=== PATIENT | female | born 1980 | race Hispanic/Latino ===

== ENCOUNTER 2019-08-15 07:43 | Emergency (ER) | payer SELFPAY ==
[2019-08-15] MEDS ORDERED: predniSONE 20 MG TAB ONE (08:03)
[2019-08-15] MEDS ORDERED: LEVALBUTEROL 1.25 MG/3 ML NEB ONE (08:03)
--- NOTE | 2019-08-15 08:47 | ER ---
Nurse's Notes [facility] Name: Lexis Sterling Age: 39 yrs Sex: Female : 1980 Arrival Date: 08/15/2019 Time: 07:46 Bed 20 Private MD: Diagnosis: Cough;Wheezing Presentation: 08/15 07:47 Presenting complaint: Patient states: Cough, congestion, sore throat x 1 week. jl7 Transition of care: patient was not received from another setting of care. Onset of symptoms was August 09, 2019. Risk Assessment: Do you want to hurt yourself or someone else? Patient reports no desire to harm self or others. Initial Sepsis Screen: Does the patient meet any 2 criteria? No. Patient's initial sepsis screen is negative. Does the patient have a suspected source of infection? No. Patient's initial sepsis screen is negative. Care prior to arrival: None. 07:47 Method Of Arrival: Ambulatory [facility] 07:47 Acuity: JD 4 jl7 Triage Assessment: 07:47 General: Appears in no apparent distress. uncomfortable, Behavior is calm, cooperative, jl7 appropriate for age. Pain: Complains of pain in chest \\T\\ Sore throat Pain does not radiate. Pain currently is 8 out of 10 on a pain scale. Quality of pain is described as "It's on fire.". EENT: Oral mucosa is moist. Throat is clear. Neuro: Level of Consciousness is awake, alert, obeys commands, Oriented to person, place, time, situation. Cardiovascular: Heart tones S1 S2 present Patient's skin is warm and dry. Respiratory: Airway is patent Respiratory effort is even, unlabored, Respiratory pattern is regular, symmetrical, Breath sounds are clear bilaterally. GI: No signs and/or symptoms were reported involving the gastrointestinal system. : No signs and/or symptoms were reported regarding the genitourinary system. Derm: Skin is pink, warm \\T\\ dry. Musculoskeletal: No signs and/or symptoms reported regarding the musculoskeletal system. 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 - Social history:: Smoking status: Patient/guardian denies using tobacco. - Family history:: not pertinent. - Ebola Screening: : No symptoms or risks identified at this time. - Hospitalizations: : No recent hospitalization is reported. Screenin:50 Abuse screen: Denies threats or abuse. Denies injuries from another. Nutritional jl7 screening: No deficits noted. Tuberculosis screening: No symptoms or risk factors identified. Fall Risk None identified. Assessment: 07:47 General: See triage assessment. jl7 08:45 Reassessment: Patient appears in no apparent distress at this time. Patient and/or jl7 family updated on plan of care and expected duration. Pain level reassessed. Patient is alert, oriented x 3, equal unlabored respirations, skin warm/dry/pink. Patient states feeling better. Patient states symptoms have improved. Vital Signs: 07:47 BP 149 / 99; Pulse 107; Resp 17 S; Temp 98.4(O); Pulse Ox 100% on R/A; Weight 47.63 kg jl7 (R); Height 4 ft. 9 in. (144.78 cm) (R); Pain 8/10; 08:45 BP 132 / 79; Pulse 95; Resp 16 S; Pulse Ox 100% on R/A; jl7 07:47 Body Mass Index 22.72 (47.63 kg, 144.78 cm) jl7 ED Course: 07:46 Patient arrived in ED. as 07:47 Carlos Carvalho RN is Primary Nurse. jl7 07:47 Leo Moreno MD is Attending Physician. rn 07:47 Arm band placed on right wrist. jl7 07:47 Patient has correct armband on for positive identification. Bed in low position. Call [facility] light in reach. Side rails up X 1. Pulse ox on. NIBP on. 08:00 Flu and/or RSV swab sent to lab. Strep swab sent to lab. jl7 08:11 Triage completed. jl7 08:28 X-ray completed. Patient tolerated procedure well. Patient moved back from radiology. jb2 08:29 XRAY Chest Pa And Lat (2 Views) In Process Unspecified. EDMS 09:00 No provider procedures requiring assistance completed. Patient did not have IV access jl7 during this emergency room visit. Administered Medications: 08:08 Drug: Xopenex 1.25 mg Route: Inhalation; jl7 08:30 Follow up: Response: No adverse reaction 7 08:09 Drug: predniSONE 60 mg Route: PO; 7 08:50 Follow up: Response: No adverse reaction jl7 Outcome: 08:46 Discharge ordered by . rn 09:00 Discharged to home ambulatory. jl7 09:00 Condition: stable 09:00 Discharge instructions given to patient, Instructed on discharge instructions, follow up and referral plans. medication usage, Demonstrated understanding of instructions, follow-up care, medications, Prescriptions given X 3. 09:00 Patient left the ED. jl7 Signatures: Dispatcher [employer] EDMS Miguel Angel Singletary Amelia as Nieto, Roman, MD MD rn Leal, Jahala, RN RN jl7
--- NOTE | 2019-08-15 08:47 | EDPHYS ---
Physician Documentation [facility] Name: Lexis Sterling Age: 39 yrs Sex: Female : 1980 Arrival Date: 08/15/2019 Time: 07:46 Bed 20 Private MD: ED Physician Leo Moreno HPI: 08/15 07:55 This 39 yrs old Female presents to ER via Unassigned with complaints of Flu rn Symptoms. 07:55 The patient or guardian reports cough, flu symptoms, myalgias. Onset: The rn symptoms/episode began/occurred 2 day(s) ago. Severity of symptoms: At their worst the symptoms were mild, in the emergency department the symptoms are unchanged. Modifying factors: The symptoms are alleviated by nothing, the symptoms are aggravated by nothing. Associated signs and symptoms: Pertinent positives: diarrhea, fever, nausea, rhinorrhea, sore throat, vomiting. The patient has not experienced similar symptoms in the past. Reports 2 days of fever, cough, sore throat, congestion, runny nose, diarrhea and vomiting. 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 Son also now has similar symptoms. 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 - Social history:: Smoking status: Patient/guardian denies using tobacco. - Family history:: not pertinent. - Ebola Screening: : No symptoms or risks identified at this time. - Hospitalizations: : No recent hospitalization is reported. ROS: 07:55 Constitutional: + fever Eyes: Negative for injury, pain, redness, and discharge, ENT: + rn congestion and sore throat Neck: Negative for injury, pain, and swelling, Cardiovascular: Negative for chest pain, palpitations, and edema, Respiratory: +cough and wheezing Abdomen/GI: + vomiting and diarrhea : Negative for injury, bleeding, discharge, and swelling, MS/Extremity: Negative for injury and deformity, Skin: Negative for injury, rash, and discoloration, Neuro: Negative for headache, numbness, tingling, and seizure. Exam: 07:55 Constitutional: This is a well developed, well nourished patient who is awake, alert, rn and in no acute distress. Ambulatory to room without difficulty or assistance Head/Face: Normocephalic, atraumatic. Eyes: Pupils equal round and reactive to light, extra-ocular motions intact. Lids and lashes normal. Conjunctiva and sclera are non-icteric and not injected. Cornea within normal limits. Periorbital areas with no swelling, redness, or edema. ENT: MMM, no stridor, mild pharyngeal erythema, no swelling. Neck: Trachea midline, no thyromegaly or masses palpated, and no cervical lymphadenopathy. Supple, full range of motion without nuchal rigidity, or vertebral point tenderness. No Meningismus. Cardiovascular: Regular rate and rhythm. No pulse deficits. Respiratory: No retractions or labored breathing. Faint audible wheezing. Speaking full sentences. Abdomen/GI: soft, non-tender, no peritoneal signs. MS/ Extremity: Pulses equal, no cyanosis. Neurovascular intact. Full, normal range of motion. Equal circumference. Neuro: Awake and alert, GCS 15, oriented to person, place, time, and situation. Cranial nerves II-XII grossly intact. Motor strength 5/5 in all extremities. Sensory grossly intact. Cerebellar exam normal. Normal gait. Vital Signs: 07:47 BP 149 / 99; Pulse 107; Resp 17 S; Temp 98.4(O); Pulse Ox 100% on R/A; Weight 47.63 kg jl7 (R); Height 4 ft. 9 in. (144.78 cm) (R); Pain 8/10; 08:45 BP 132 / 79; Pulse 95; Resp 16 S; Pulse Ox 100% on R/A; jl7 07:47 Body Mass Index 22.72 (47.63 kg, 144.78 cm) jl7 MDM: 07:47 Patient medically screened. rn 08:45 Differential Diagnosis: Bronchitis Influenza Upper Respiratory Infection Asthma rn Exacerbation Viral Syndrome Pneumonia. Data reviewed: vital signs, nurses notes, lab test result(s), radiologic studies, plain films, and as a result, I will discharge patient. Test interpretation: by ED physician or midlevel provider: plain radiologic studies, CXR neg for pneumonia. Counseling: I had a detailed discussion with the patient and/or guardian regarding: the historical points, exam findings, and any diagnostic results supporting the discharge/admit diagnosis, lab results, radiology results, the need for outpatient follow up, to return to the emergency department if symptoms worsen or persist or if there are any questions or concerns that arise at home. Special discussion: I discussed with the patient/guardian in detail that at this point there is no indication for admission to the hospital. It is understood, however, that if the symptoms persist or worsen the patient needs to return immediately for re-evaluation. ED course: Will treat for flu given + exposure and symptoms consistent with flu, along with steroids and cough medication for asthma exacerbation.. 08/15 07:54 Order name: Flu; Complete Time: 08:43 rn 08/15 07:54 Order name: Strep; Complete Time: 08:43 rn 08/15 07:54 Order name: XRAY Chest Pa And Lat (2 Views) rn 08/15 08:24 Order name: Throat Culture EDMS Administered Medications: 08:08 Drug: Xopenex 1.25 mg Route: Inhalation; [facility] 08:30 Follow up: Response: No adverse reaction [facility] 08:09 Drug: predniSONE 60 mg Route: PO; 7 08:50 Follow up: Response: No adverse reaction [facility] Disposition: 08/15/19 08:46 Discharged to Home. Impression: Cough, Wheezing. - Condition is Stable. - Discharge Instructions: Upper Respiratory Infection, Adult, Cough, Adult. - Prescriptions for Albuterol Sulfate 90 mcg/actuation - inhale 1-2 puff by INHALATION route every 4-6 hours; 1 Inhaler. Tamiflu 75 mg Oral Capsule - take 1 tablet by ORAL route every 12 hours for 5 days; 10 tablet. Guaifenesin AC 10- 100 mg/5 mL Oral Liquid - take 10 milliliter by ORAL route every 4 hours As needed; 240 milliliter. Prednisone 20 mg Oral Tablet - take 3 tablet by ORAL route once daily for 5 days; 15 tablet. - Medication Reconciliation Form, Thank You Letter, Antibiotic Education, Prescription Opioid Use, Work release form form. - Follow up: Private Physician; When: As needed; Reason: Recheck today's complaints, Re-evaluation by your physician. - Problem is new. - Symptoms have improved. Signatures: Dispatcher [employer] EDMS Moreno, Leo, Carlos Glass MD, rn, RN RN jl7 Corrections: (The following items were deleted from the chart) 09:00 08:46 08/15/2019 08:46 Discharged to Home. Impression: Cough; Wheezing. Condition is jl7 Stable. Forms are Work release form, Medication Reconciliation Form, Thank You Letter, Antibiotic Education, Prescription Opioid Use. Follow up: Private Physician; When: As needed; Reason: Recheck today's complaints, Re-evaluation by your physician. Problem is new. Symptoms have improved. rn
--- NOTE | 2019-08-15 09:04 | RAD REPORT ---
EXAM DESCRIPTION: RAD - Chest Pa And Lat (2 Views) - 08/15/2019 8:29 am CLINICAL HISTORY: COUGH, congestion COMPARISON: None. TECHNIQUE: PA and lateral views of the chest were obtained. FINDINGS: The lungs are clear. Breast implants overlie the lower chest. Heart size is normal and ce ntral vasculature is within normal limits. No pleural effusion or pneumothorax seen. No acute bony finding noted. No aortic abnormality. IMPRESSION: No acute cardiopulmonary process. No suspicious change from comparison.
[2019-08-15 09:29] VITALS: TEMP 98.4; O2SAT 100
[2019-08-15 09:30] VITALS: BP 132/79
== END 2019-08-15 09:00 | disposition home or self-care (01) ==
LOC: ER 07:43
DX: R06.2 Wheezing (principal); Z85.41 Personal history of malignant neoplasm of cervix uteri
CPT/HCPCS: 71046; 87070; 87081; 87804; 99284; J7512

== ENCOUNTER 2021-01-07 08:14 | Emergency (ER) | payer SELFPAY ==
[2021-01-07] MEDS ORDERED: DIPHENHYDRAMINE 25 MG TAB/CAP ONE (08:53)
[2021-01-07] MEDS ORDERED: METHYLPREDNISOLONE 125 MG INJ ONE (08:53)
--- NOTE | 2021-01-07 10:52 | EDPHYS ---
Physician Documentation [facility] Name: Lexis Sterling Age: 40 yrs Sex: Female : 1980 Arrival Date: 01/07/2021 Time: 08:16 Bed 8 Private MD: ED Physician Nick Mosley HPI: 01/07 08:31 This 40 yrs old Female presents to ER via Ambulatory with complaints of kdr Itching All over. 08:31 The patient thinks she may have been exposed to parasites and feels like she is itching kdr all over and is having worms in her stool.. Onset: The symptoms/episode began/occurred gradually, 1 week(s) ago. Severity of symptoms: At their worst the symptoms were mild in the emergency department the symptoms are unchanged. The patient has not experienced similar symptoms in the past. The patient has not recently seen a physician. Historical: - Allergies: 08:27 No Known Allergies; sv - PMHx: 08:27 cervical CA; Migraines; sv - PSHx: 08:27 None; sv - Immunization history:: Adult Immunizations up to date. - Social history:: Smoking status: . ROS: 08:31 Constitutional: Negative for fever, chills, and weight loss, Eyes: Negative for injury, kdr pain, redness, and discharge, Neck: Negative for injury, pain, and swelling, Cardiovascular: Negative for chest pain, palpitations, and edema, Respiratory: Negative for shortness of breath, cough, wheezing, and pleuritic chest pain, Abdomen/GI: Negative for abdominal pain, nausea, vomiting, diarrhea, and constipation, Back: Negative for injury and pain, : Negative for injury, bleeding, discharge, and swelling, MS/Extremity: Negative for injury and deformity, Skin: Negative for injury, rash, and discoloration, Neuro: Negative for headache, weakness, numbness, tingling, and seizure activity. Psych: Negative for depression, anxiety, suicide ideation, homicidal ideation, and hallucinations, Allergy/Immunology: Negative for hives, rash, and allergies, Endocrine: Negative for neck swelling, polydipsia, polyuria, polyphagia, and marked weight changes, Hematologic/Lymphatic: Negative for swollen nodes, abnormal bleeding, and unusual bruising. 08:31 Skin: Positive for erythema, diffusely, itching, Negative for abscesses, avulsion, cellulitis, diaphoresis, discoloration, ecchymosis, hematoma, jaundice, laceration(s), lesions, pallor, puncture, rash, swelling, ulceration. Exam: 08:31 Constitutional: This is a well developed, well nourished patient who is awake, alert, kdr and in no acute distress. Head/Face: Normocephalic, atraumatic. Eyes: Pupils equal round and reactive to light, extra-ocular motions intact. Lids and lashes normal. Conjunctiva and sclera are non-icteric and not injected. Cornea within normal limits. Periorbital areas with no swelling, redness, or edema. Neck: Trachea midline, no thyromegaly or masses palpated, and no cervical lymphadenopathy. Supple, full range of motion without nuchal rigidity, or vertebral point tenderness. No Meningismus. Chest/axilla: Normal chest wall appearance and motion. Nontender with no deformity. No lesions are appreciated. Cardiovascular: Regular rate and rhythm with a normal S1 and S2. No gallops, murmurs, or rubs. Normal PMI, no JVD. No pulse deficits. Respiratory: Lungs have equal breath sounds bilaterally, clear to auscultation and percussion. No rales, rhonchi or wheezes noted. No increased work of breathing, no retractions or nasal flaring. Abdomen/GI: Soft, non-tender, with normal bowel sounds. No distension or tympany. No guarding or rebound. No evidence of tenderness throughout. Back: No spinal tenderness. No costovertebral tenderness. Full range of motion. Skin: Warm, dry with normal turgor. Normal color with no rashes, no lesions, and no evidence of cellulitis. MS/ Extremity: Pulses equal, no cyanosis. Neurovascular intact. Full, normal range of motion. Neuro: Awake and alert, GCS 15, oriented to person, place, time, and situation. Cranial nerves II-XII grossly intact. Motor strength 5/5 in all extremities. Sensory grossly intact. Cerebellar exam normal. Normal gait. Psych: Awake, alert, with orientation to person, place and time. Behavior, mood, and affect are within normal limits. Vital Signs: 08:26 BP 133 / 86; Pulse 96; Resp 20; Temp 97.4; Pulse Ox 100% ; sv 09:20 BP 118 / 83; Pulse 76; Resp 16; Pulse Ox 99% ; sv 10:11 BP 126 / 95; Pulse 78; Resp 16; Pulse Ox 97% ; sv MDM: 08:31 Data reviewed: vital signs, nurses notes. Counseling: I had a detailed discussion with kdr the patient and/or guardian regarding: the historical points, exam findings, and any diagnostic results supporting the discharge/admit diagnosis, the need for outpatient follow up, Call lab for results of stool tests in a few days. 10:52 Patient medically screened. kdr 01/07 08:30 Order name: Stool Culture kdr 01/07 08:30 Order name: Ova And Parasites kdr 01/07 08:30 Order name: Occult Blood kdr 01/07 08:30 Order name: Fecal Leukocyte Stain kdr Administered Medications: 08:40 Drug: SOLU-Medrol (methylPREDNISolone sodium succinate) 125 mg Route: IM; Site: right sv gluteus; 09:00 Follow up: Response: No adverse reaction sv 08:41 Drug: Benadryl (diphenhydrAMINE) 25 mg Route: PO; sv 09:00 Follow up: Response: No adverse reaction sv Disposition: 01/07/21 10:52 Discharged to Home. Impression: Allergic contact dermatitis. - Condition is Stable. - Discharge Instructions: Allergies, Adult. - Prescriptions for Benadryl 25 mg Oral Capsule - take 1 capsule by ORAL route every 6 hours As needed; 30 tablet. Medrol (Alexsander) 4 mg Oral Tablets, Dose Pack - take 1 tablet by ORAL route as directed - follow package instructions; 1 packet. - Medication Reconciliation Form, Thank You Letter form. - Follow up: Private Physician; When: 2 - 3 days; Reason: If symptoms return, Further diagnostic work-up, Recheck today's complaints, Continuance of care, Re-evaluation by your physician. - Problem is new. - Symptoms have improved. - Notes: Call the lab to get all of the final stool lab results Signatures: Dispatcher [employer] Megan Warner RN RN Nick Mosley MD MD kdr Corrections: (The following items were deleted from the chart) 11:03 10:52 01/07/2021 10:52 Discharged to Home. Impression: Allergic contact dermatitis. sv Condition is Stable. Forms are Medication Reconciliation Form, Thank You Letter, Antibiotic Education, Prescription Opioid Use. Follow up: Private Physician; When: 2 - 3 days; Reason: If symptoms return, Further diagnostic work-up, Recheck today's complaints, Continuance of care, Re-evaluation by your physician. Problem is new. Symptoms have improved. kdr
--- NOTE | 2021-01-07 10:52 | ER ---
Nurse's Notes [facility] Name: Lexis Sterling Age: 40 yrs Sex: Female : 1980 Arrival Date: 01/07/2021 Time: 08:16 Bed 8 Private MD: Diagnosis: Allergic contact dermatitis Presentation: 01/07 08:26 Chief complaint: Patient states: "I think I have a parasite in me or something. I went sv to the and they gave me some steroid cream but it isn't working.". Coronavirus screen: At this time, unable to obtain information related to travel outside the [place] Ebola Screen: No symptoms or risks identified at this time. Initial Sepsis Screen: Does the patient meet any 2 criteria? HR > 90 bpm. No. Patient's initial sepsis screen is negative. Does the patient have a suspected source of infection? No. Patient's initial sepsis screen is negative. Risk Assessment: Do you want to hurt yourself or someone else? Patient reports no desire to harm self or others. Onset of symptoms is unknown. 08:26 Method Of Arrival: Ambulatory sv 08:26 Acuity: JD 5 sv Triage Assessment: 08:28 General: Appears in no apparent distress. uncomfortable, well developed, Behavior is sv cooperative, rambling. Pain: Denies pain. Neuro: Level of Consciousness is awake, alert, obeys commands, Oriented to person, place, time, situation, Moves all extremities. Full function Gait is steady. Respiratory: Respiratory effort is even, unlabored, Respiratory pattern is regular, symmetrical. Derm: Skin is pink, warm \\T\\ dry. Historical: - Allergies: 08:27 No Known Allergies; sv - PMHx: 08:27 cervical CA; Migraines; sv - PSHx: 08:27 None; sv - Immunization history:: Adult Immunizations up to date. - Social history:: Smoking status: . Screenin: Abuse screen: Denies threats or abuse. Denies injuries from another. Nutritional sv screening: No deficits noted. Tuberculosis screening: No symptoms or risk factors identified. Fall Risk None identified. Assessment: 08:41 Reassessment: Patient appears in no apparent distress at this time. No changes from sv previously documented assessment. Patient and/or family updated on plan of care and expected duration. Pain level reassessed. Patient is alert, oriented x 3, equal unlabored respirations, skin warm/dry/pink. 09:30 Reassessment: Patient appears in no apparent distress at this time. Patient and/or hb family updated on plan of care and expected duration. Pain level reassessed. Patient is alert, oriented x 3, equal unlabored respirations, skin warm/dry/pink. 11:02 Reassessment: Patient appears in no apparent distress at this time. No changes from sv previously documented assessment. Patient and/or family updated on plan of care and expected duration. Pain level reassessed. Patient is alert, oriented x 3, equal unlabored respirations, skin warm/dry/pink. Vital Signs: 08:26 BP 133 / 86; Pulse 96; Resp 20; Temp 97.4; Pulse Ox 100% ; sv 09:20 BP 118 / 83; Pulse 76; Resp 16; Pulse Ox 99% ; sv 10:11 BP 126 / 95; Pulse 78; Resp 16; Pulse Ox 97% ; sv ED Course: 08:16 Patient arrived in ED. ds1 08:17 Megan Zhou RN is Primary Nurse. sv 08:19 Nick Mosley MD is Attending Physician. kdr 08:27 Triage completed. sv 08:28 Arm band placed on. sv 08:29 Patient has correct armband on for positive identification. Bed in low position. Call sv light in reach. Pulse ox on. NIBP on. Door closed. Head of bed elevated. 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 sv 11:02 Patient did not have IV access during this emergency room visit. sv Administered Medications: 08:40 Drug: SOLU-Medrol (methylPREDNISolone sodium succinate) 125 mg Route: IM; Site: right sv gluteus; 09:00 Follow up: Response: No adverse reaction sv 08:41 Drug: Benadryl (diphenhydrAMINE) 25 mg Route: PO; sv 09:00 Follow up: Response: No adverse reaction sv Outcome: 10:52 Discharge ordered by . kdr 11:02 Discharged to home ambulatory. sv 11:02 Condition: stable 11:02 Discharge instructions given to patient, Instructed on discharge instructions, follow up and referral plans. medication usage, Demonstrated understanding of instructions, follow-up care, medications, Prescriptions given X 2. 11:03 Patient left the ED. sv Signatures: Megan Zhou RN RN sv Nick Mosley MD MD [facility] Shefali Muse ds1 Reina Ruiz RN RN hb
[2021-01-07 11:19] VITALS: TEMP 97.4
[2021-01-07 11:22] VITALS: BP 126/95; O2SAT 97
== END 2021-01-07 11:03 | disposition home or self-care (01) ==
LOC: ER 08:14
DX: L23.9 Allergic contact dermatitis, unspecified cause (principal); Z85.41 Personal history of malignant neoplasm of cervix uteri
CPT/HCPCS: 96372; 99284; J2930

== ENCOUNTER 2023-07-30 03:58 | Emergency (ER) | payer SELFPAY ==
--- NOTE | 2023-07-30 04:25 | ER ---
Nurse's Notes [facility] Name: Lexis Sterling Age: 43 yrs Sex: Female : 1980 Arrival Date: 07/30/2023 Time: 03:58 Bed 17 Private MD: Diagnosis: Rash and other nonspecific skin eruption Presentation: 07/30 04:07 Chief complaint: Patient states: PT IS ALLERGIC TO LATEX AND DOXYCYLINE. UNKNOWN WHAT rv TRIGGERED THE REACTION, BUT RASH STARTED ON THE FACE, TO THE NECK AND QUINCY ARMS. DENIES SOB. Coronavirus screen: At this time, the client does not indicate any symptoms associated with coronavirus-19. Ebola Screen: No symptoms or risks identified at this time. Initial Sepsis Screen: Does the patient meet any 2 criteria? No. Patient's initial sepsis screen is negative. Does the patient have a suspected source of infection? No. Patient's initial sepsis screen is negative. Risk Assessment: Do you want to hurt yourself or someone else? Patient reports no desire to harm self or others. Onset of symptoms was July 30, 2023. 04:07 Method Of Arrival: Ambulatory rv 04:07 Acuity: JD 4 rv Triage Assessment: 04:09 General: Appears comfortable, Behavior is calm, cooperative. Pain: Denies pain. Neuro: rv Level of Consciousness is awake, alert, obeys commands, Oriented to person, place, time, situation. Cardiovascular: Capillary refill < 3 seconds Patient's skin is warm and dry. Respiratory: Airway is patent Respiratory effort is even, unlabored, Breath sounds are clear bilaterally. GI: No signs and/or symptoms were reported involving the gastrointestinal system. : No signs and/or symptoms were reported regarding the genitourinary system. Derm: Rash noted that is red, raised, on back of neck, face, right arm and left arm Reports burning. Historical: - Allergies: 04:09 Doxycycline; rv 04:09 Latex, Natural Rubber; rv - PMHx: 04:09 cervical CA; Migraines; rv - PSHx: 04:09 Appendectomy; TUBAL LIGATION; rv - Immunization history:: Adult Immunizations up to date. - Social history:: Smoking status: Patient denies any tobacco usage or history of. Screenin:11 [facility] ED Fall Risk Assessment (Adult) History of falling in the last 3 months, rv including since admission No falls in past 3 months (0 pts) Score/Fall Risk Level 0 - 2 = Low Risk Oriented to surroundings, Maintained a safe environment, Educated pt \T\ family on fall prevention, incl call for assistance when getting out of bed, Assessed \T\ reinforced patient's understanding of fall precautions. Abuse screen: Denies threats or abuse. Denies injuries from another. Nutritional screening: No deficits noted. Tuberculosis screening: No symptoms or risk factors identified. Assessment: 04:11 Reassessment: SEE TRIAGE NOTES. rv 04:14 General: Appears in no apparent distress. comfortable, Behavior is calm, cooperative, km8 appropriate for age. Pain: Denies pain. Neuro: Level of Consciousness is awake, alert, obeys commands, Oriented to person, place, time, situation. Cardiovascular: Denies chest pain, shortness of breath, Capillary refill < 3 seconds Patient's skin is warm and dry. Respiratory: Airway is patent Respiratory effort is even, unlabored, Respiratory pattern is regular, symmetrical. GI: No signs and/or symptoms were reported involving the gastrointestinal system. : No signs and/or symptoms were reported regarding the genitourinary system. EENT: No deficits noted. Derm: Skin is intact, is healthy with good turgor, Skin is dry, Skin is pink, warm \T\ dry. normal, Skin temperature is warm Rash noted that is red, raised, urticaria, on left arm and right arm and face and back of neck. Musculoskeletal: No signs and/or symptoms reported regarding the musculoskeletal system. Vital Signs: 04:07 BP 130 / 76; Pulse 120; Resp 18; Temp 100; Weight 41.73 kg; Height 4 ft. 9 in. ; rv 04:30 BP 128 / 65; Pulse 111; Pulse Ox 100% on R/A; km8 04:31 Pulse 103; ec2 04:07 Body Mass Index 19.91 (41.73 kg, 144.78 cm) rv Beth Coma Score: 04:15 Eye Response: spontaneous(4). Motor Response: obeys commands(6). Verbal Response: km8 oriented(5). Total: 15. ED Course: 04:00 Patient arrived in ED. jj6 04:03 Leonard Piña MD is Attending Physician. ec2 04:09 Triage completed. rv 04:09 Arm band placed on right wrist. rv 04:11 No provider procedures requiring assistance completed. rv 04:14 Aida Reddy, RN is Primary Nurse. km8 04:15 Patient has correct armband on for positive identification. Bed in low position. Call km8 light in reach. Side rails up X 1. Client placed on continuous cardiac and pulse oximetry monitoring. NIBP monitoring applied. Door closed. Noise minimized. 04:15 Patient maintains SpO2 saturation greater than 95% on room air. km8 04:33 Provided Education on: d/c teaching. km8 04:33 Patient did not have IV access during this emergency room visit. km8 Administered Medications: 04:25 Drug: predniSONE PO 40 mg PO once Route: PO; km8 04:33 Follow up: Response: No adverse reaction km8 04:25 Drug: hydrOXYzine PO 25 mg PO once Route: PO; km8 04:33 Follow up: Response: No adverse reaction km8 Medication: 04:11 VIS not applicable for this client. rv Outcome: 04:24 Discharge ordered by . 2 04:33 Discharged to home ambulatory, km8 04:33 Condition: good 04:33 Discharge instructions given to patient, Instructed on discharge instructions, follow up and referral plans. medication usage, Demonstrated understanding of instructions, follow-up care, medications, Prescriptions given X 2, 04:34 Patient left the ED. km8 Signatures: Julio Wild, RN RN Shanon Sampson jj6 Leonard Piña MD MD ec2 Marx, Katie, RN RN km8 Corrections: (The following items were deleted from the chart) 04:17 04:14 Derm: No signs and/or symptoms reported regarding the dermatologic system. km8 km8
--- NOTE | 2023-07-30 04:25 | EDPHYS ---
Physician Documentation [facility] Name: Lexis Sterling Age: 43 yrs Sex: Female : 1980 Arrival Date: 07/30/2023 Time: 03:58 Bed 17 Private MD: ED Physician Leonard Piña HPI: 07/30 04:20 This 43 yrs old Female presents to ER via Ambulatory with complaints of Rash. ec2 04:20 Patient arrives today for evaluation of a rash on her face. Patient states that ec2 yesterday she had noticed a rash on her face as well as her neck and her bilateral hands. States that it is pruritic in nature, has not had any fevers, no nausea, vomiting, no diarrhea. States that she has no new allergens in her life. 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 Historical: - Allergies: 04:09 Doxycycline; rv 04:09 Latex, Natural Rubber; rv - PMHx: 04:09 cervical CA; Migraines; rv - PSHx: 04:09 Appendectomy; TUBAL LIGATION; rv - Immunization history:: Adult Immunizations up to date. - Social history:: Smoking status: Patient denies any tobacco usage or history of. ROS: 04:20 Constitutional: as per hpi ec2 Exam: 04:20 Constitutional: GEN: NAD Head: atraumatic Eyes: EOMI Ears: External ears are normal. ec2 Mouth: No oropharyngeal lesions noted, no tongue swelling, no uvular swelling, no stridor CV: regular rate LUNGS: no respiratory distress, no wheezes, no rales, no rhonchi ABD: non-distended SKIN: no evidence of rashes, erythematous papules noted to the bilateral cheeks, perioral area, neck area, bilateral hands. No purulence expressed from any of these areas, excoriations are noted. MSK: no evidence of trauma NEURO: moves all extremities equally Vital Signs: 04:07 BP 130 / 76; Pulse 120; Resp 18; Temp 100; Weight 41.73 kg; Height 4 ft. 9 in. ; rv 04:30 BP 128 / 65; Pulse 111; Pulse Ox 100% on R/A; km8 04:31 Pulse 103; ec2 04:07 Body Mass Index 19.91 (41.73 kg, 144.78 cm) rv Loma Coma Score: 04:15 Eye Response: spontaneous(4). Motor Response: obeys commands(6). Verbal Response: km8 oriented(5). Total: 15. MDM: 04:03 Patient medically screened. ec2 04:20 Data reviewed: vital signs. ED course: Patient arrives today for evaluation of pruritic ec2 rash. Examination remarkable for skin findings as noted above. Respiratory exam is reassuring without evidence of wheezing, no oropharyngeal involvement, no evidence of cellulitis, no evidence of systemic symptoms, Patient is nontoxic-appearing, no evidence of ocular involvement. Clinically have a low index suspicion for an infectious process ongoing. I will start the patient on steroids and Atarax and have her follow-up with her primary care doctor. I instructed her to return to the ED if she has systemic symptoms. Return precautions given.. Administered Medications: 04:25 Drug: predniSONE PO 40 mg PO once Route: PO; km8 04:33 Follow up: Response: No adverse reaction km8 04:25 Drug: hydrOXYzine PO 25 mg PO once Route: PO; km8 04:33 Follow up: Response: No adverse reaction km8 Disposition Summary: 07/30/23 04:24 Discharge Ordered Notes: Location: Home ec2 Condition: Stable ec2 Diagnosis - Rash and other nonspecific skin eruption ec2 Followup: ec2 - With: Private Physician - When: - Reason: Re-evaluation by your physician Discharge Instructions: - Discharge Summary Sheet ec2 - Rash, Adult ec2 Forms: - Medication Reconciliation Form ec2 - Thank You Letter ec2 - Antibiotic Education ec2 - Prescription Opioid Use ec2 - Patient Portal Instructions ec2 - Leadership Thank You Letter ec2 Prescriptions: - Hydroxyzine HCl 25 mg Oral Tablet - take 1 tablet ORAL route every 6 hours As needed; 30 tablet; Refills: 0, ec2 Product Selection Permitted - Prednisone 20 mg Oral Tablet - take 2 tablets ORAL route once daily for 5 days; 10 tablet; Refills: 0, Product ec2 Selection Permitted Signatures: Julio Wild RN RN Leonard Holt MD MD ec2 Aida Reddy RN RN km8 Corrections: (The following items were deleted from the chart) 04:24 04:20 ED course: Patient arrives today for evaluation of pruritic rash. Examination ec2 remarkable for skin findings as noted above. Respiratory exam is reassuring without evidence of wheezing, no oropharyngeal involvement, no evidence of cellulitis, no evidence of systemic symptoms.. ec2 04:26 04:20 Constitutional: GEN: NAD Head: atraumatic Eyes: EOMI Ears: External ears are ec2 normal. CV: regular rate LUNGS: no respiratory distress ABD: non-distended SKIN: no evidence of rashes, erythematous papules noted to the bilateral cheeks, perioral area, neck area, bilateral hands. No purulence expressed from any of these areas, excoriations are noted. MSK: no evidence of trauma NEURO: moves all extremities equally ec2
[2023-07-30] MEDS ORDERED: predniSONE 20 MG TAB ONE (04:38)
[2023-07-30] MEDS ORDERED: hydrOXYzine HCL 25 MG TAB ONE (04:38)
[2023-07-30 04:39] VITALS: TEMP 100
[2023-07-30 04:40] VITALS: BP 128/65; O2SAT 100
== END 2023-07-30 04:34 | disposition home or self-care (01) ==
LOC: ER 03:58
DX: R21 Rash and other nonspecific skin eruption (principal); Z91.040 Latex allergy status; Z88.8 Allergy status to other drugs, medicaments and biological substances
CPT/HCPCS: 99284; J7512

== ENCOUNTER 2023-08-12 23:26 | Emergency (ER) | payer SELFPAY ==
--- NOTE | 2023-08-12 23:49 | ER ---
Nurse's Notes [facility] Name: Lexis Sterling Age: 43 yrs Sex: Female : 1980 Arrival Date: 08/12/2023 Time: 23:26 Bed 12 Private MD: Diagnosis: Rash and other nonspecific skin eruption Presentation: 08/12 23:41 Chief complaint: Patient states: 2 weeks ago broke out with rash and was seen by PCP, cm10 and rash cleared. pt states that yesterday she started having a rash again. Pt also reports, "I also have these bites all over my body.". Coronavirus screen: Vaccine status: Patient reports receiving the 2nd dose of the covid vaccine. Client denies travel out of the [place] in the last 14 days. Ebola Screen: Patient denies travel to an Ebola-affected area in the 21 days before illness onset. No symptoms or risks identified at this time. Onset: The symptoms/episode began/occurred yesterday. Anaphylaxis evaluation, no signs or symptoms of anaphylaxis were noted. Initial Sepsis Screen: Does the patient meet any 2 criteria? No. Patient's initial sepsis screen is negative. Does the patient have a suspected source of infection? No. Patient's initial sepsis screen is negative. Risk Assessment: Do you want to hurt yourself or someone else? Patient reports no desire to harm self or others. Onset of symptoms was August 12, 2023. 23:41 Method Of Arrival: Ambulatory cm10 23:41 Acuity: JD 4 cm10 Triage Assessment: 23:43 General: Appears in no apparent distress. comfortable, Behavior is calm, cooperative. cm10 Pain: Denies pain. Historical: - Allergies: 23:41 Doxycycline; cm10 23:41 Latex; cm10 - PMHx: 23:41 cervical CA; Migraines; cm10 - PSHx: 23:41 Appendectomy; tubal ligation; cm10 - Immunization history:: Adult Immunizations unknown. - Social history:: Smoking status: Patient denies any tobacco usage or history of. Screenin/03 00:00 [facility] ED Fall Risk Assessment (Adult) History of falling in the last 3 months, kl including since admission No falls in past 3 months (0 pts). Abuse screen: Denies threats or abuse. Nutritional screening: No deficits noted. Tuberculosis screening: No symptoms or risk factors identified. Assessment: 00:00 Respiratory: No deficits noted. Airway is patent Respiratory effort is even, unlabored. kl Derm: Rash noted that is raised. Vital Signs: 08/12 23:41 BP 129 / 81; Pulse 119; Resp 18; Temp 97.7; Pulse Ox 100% on R/A; Weight 41.73 kg; cm10 Height 4 ft. 9 in. ; 23:41 Body Mass Index 19.91 (41.73 kg, 144.78 cm) cm10 ED Course: 23:35 Patient arrived in ED. kj1 23:37 Jamari Ellis DO is Attending Physician. ms3 23:38 [facility]C [facility] kb 23:43 Triage completed. cm10 23:43 Arm band placed on Patient placed in an exam room, on a stretcher. cm10 08/13 00:00 Patient did not have IV access during this emergency room visit. kl 00:03 No provider procedures requiring assistance completed. kl Administered Medications: 08/12 23:59 Drug: predniSONE PO 40 mg PO once Route: PO; kl 23:59 Drug: Famotidine PO 20 mg PO once Route: PO; kl Outcome: 23:49 Discharge ordered by MD. elías 08/13 00:01 Discharged to home ambulatory, brandin Condition: stable Discharge instructions given to patient, Instructed on discharge instructions, follow up and referral plans. medication usage, Demonstrated understanding of instructions, follow-up care, medications, Prescriptions given X 3, 00:03 Patient left the ED. Signatures: Catrina Silva FNP-C FNP-Ckb Lewis, Kimberly, RN RN kl Jackson, Kandis kj1 Jamari Ellis DO DO ms3 Keri Villegas, SUSIE RICAHRDS 10
--- NOTE | 2023-08-12 23:49 | EDPHYS ---
Physician Documentation [facility] Name: Lexis Sterling Age: 43 yrs Sex: Female : 1980 Arrival Date: 08/12/2023 Time: 23:26 Bed 12 Private MD: ED Physician Jamari Ellis HPI: 08/13 00:01 This 43 yrs old Female presents to ER via Ambulatory with complaints of kb Allergic Reaction. 00:01 Pt reports rash that started 2 weeks ago, took a course of steroids and it cleared up. kb States it started again yesterday. Reports itching diffusely, but worse between fingers and at nailbeds. Denies fever. Historical: - Allergies: 08/12 23:41 Doxycycline; cm10 23:41 Latex; cm10 - PMHx: 23:41 cervical CA; Migraines; cm10 - PSHx: 23:41 Appendectomy; tubal ligation; cm10 - Immunization history:: Adult Immunizations unknown. - Social history:: Smoking status: Patient denies any tobacco usage or history of. ROS: 08/13 00:00 Constitutional: Negative for fever, chills, and weight loss, kb Skin: Positive for rash, diffusely, All other systems are negative, Exam: 00:00 Constitutional: This is a well developed, well nourished patient who is awake, alert, kb and in no acute distress. Head/Face: Normocephalic, atraumatic. ENT: Moist Mucous membranes Cardiovascular: Regular rate Respiratory: Respirations even and unlabored. No increased work of breathing. Talking in full sentences MS/ Extremity: Pulses equal, no cyanosis. Neurovascular intact. Full, normal range of motion. Neuro: Awake and alert, GCS 15, oriented to person, place, time, and situation. Moves all extremities. Normal gait. 00:00 Skin: rash a moderate rash is noted, consistent with scabies, Vital Signs: 08/12 23:41 BP 129 / 81; Pulse 119; Resp 18; Temp 97.7; Pulse Ox 100% on R/A; Weight 41.73 kg; cm10 Height 4 ft. 9 in. ; 23:41 Body Mass Index 19.91 (41.73 kg, 144.78 cm) cm10 MDM: 23:38 Patient medically screened. kb 08/13 00:01 Differential diagnosis: anaphylaxis, angioedema, urticaria, scabies. Data reviewed: kb vital signs, nurses notes. Counseling: I had a detailed discussion with the patient and/or guardian regarding the historical points, exam findings, and any diagnostic results supporting the discharge/admit diagnosis, the need for outpatient follow up, a family practitioner, to return to the emergency department if symptoms worsen or persist or if there are any questions or concerns that arise at home. Administered Medications: 08/12 23:59 Drug: predniSONE PO 40 mg PO once Route: PO; 23:59 Drug: Famotidine PO 20 mg PO once Route: PO; kl Disposition: 08/13 00:38 I was immediately available on-site in the Emergency Department for consultation in the ms3 care of the patient. Disposition Summary: 08/12/23 23:49 Discharge Ordered Notes: Location: Home kb Condition: Stable kb Diagnosis - Rash and other nonspecific skin eruption kb Followup: kb - With: Emergency Department - When: As needed - Reason: Worsening of condition Followup: kb - With: Private Physician - When: 2 - 3 days - Reason: Recheck today's complaints, Continuance of care, Re-evaluation by your physician Discharge Instructions: - Discharge Summary Sheet kb - Rash, Adult, [id number] kb - Scabies, Adult kb Forms: - Medication Reconciliation Form kb - Thank You Letter kb - Antibiotic Education kb - Prescription Opioid Use kb - Patient Portal Instructions kb - Leadership Thank You Letter kb Prescriptions: - Elimite 5 % Topical Cream - apply 1 application TOPICAL route one time Wash after 12 hours.; 60 gram; kb Refills: 0, Product Selection Permitted - Pepcid 20 mg Oral Tablet - take 1 tablet ORAL route every 12 hours for 5 days; 10 tablet; Refills: 0, kb Product Selection Permitted - Prednisone 20 mg Oral Tablet - take 1 tablet ORAL route once daily for 5 days; 5 tablet; Refills: 0, Product kb Selection Permitted Signatures: Catrnia Silva FNP-C FNP-Leena Wilson, RN RN Jamari Gale DO DO ms3 Keri Villegas RN RN cm10
[2023-08-13] MEDS ORDERED: FAMOTIDINE 20 MG TAB ONE (00:09)
[2023-08-13] MEDS ORDERED: predniSONE 20 MG TAB ONE (00:09)
[2023-08-13 00:28] VITALS: BP 129/81; TEMP 97.7; O2SAT 100
== END 2023-08-13 00:03 | disposition home or self-care (01) ==
LOC: ER 23:26
DX: R21 Rash and other nonspecific skin eruption (principal)
CPT/HCPCS: 99283; J7512

== ENCOUNTER → 2023-09-06 | Emergency (ER) | payer SELFPAY ==
[~2023-09-06] MED LIST: ACETAMINOPHEN 500 MG TAB ONE; GUAIFENESIN/DM 5 ML UCUP ONE; IBUPROFEN 400 MG TAB ONE; PROMETHAZINE 25 MG TABLET ONE
[2023-09-06 02:00] LABS: SARS-CoV-2 Antigen Rapid Res Positive (Negative)
--- NOTE | 2023-09-06 02:43 | ER ---
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 Coronavirus screen: Vaccine status: Patient reports receiving the 2nd dose of the covid vaccine. Ebola Screen: Patient negative for fever greater than or equal to 101.5 degrees Fahrenheit, and additional compatible Ebola Virus Disease symptoms. Initial Sepsis Screen: Does the patient meet any 2 criteria? No. Patient's initial sepsis screen is negative. Does the patient have a suspected source of infection? No. Patient's initial sepsis screen is negative. Risk Assessment: Do you want to hurt yourself or someone else? Patient reports no desire to harm self or others. Onset of symptoms was September 04, 2023. 01:19 Method Of Arrival: Ambulatory 01:19 Acuity: JD 4 Triage Assessment: 01:21 General: Appears in no apparent distress. Behavior is cooperative, anxious. Pain: Complains of pain in generalized body aches Pain currently is 8 out of 10 on a pain scale. EENT: Reports nasal congestion. Respiratory: Airway is patent Trachea midline Respiratory effort is even, unlabored, Respiratory pattern is regular, symmetrical, Breath sounds are clear bilaterally. Historical: - Allergies: 01:21 Doxycycline; 01:21 Latex; - Home Meds: 01:21 None [Active]; - PMHx: 01:21 cervical CA; Migraines; 01:22 Asthma; - PSHx: 01:21 Appendectomy; tubal ligation; - Immunization history:: Adult Immunizations up to date. - Social history:: Smoking status: Patient denies any tobacco usage or history of. - Family history:: not pertinent. Screenin:33 [facility] ED Fall Risk Assessment (Adult) History of falling in the last 3 months, including since admission No falls in past 3 months (0 pts) Confusion or Disorientation No (0 pts) Intoxicated or Sedated No (0 pts) Impaired Gait No (0 pts) Mobility Assist Device Used No (0 pt) Altered Elimination No (0 pt) Score/Fall Risk Level 0 - 2 = Low Risk Oriented to surroundings, Maintained a safe environment. Abuse screen: Denies threats or abuse. Nutritional screening: No deficits noted. Tuberculosis screening: No symptoms or risk factors identified. Assessment: 01:32 Reassessment: see triage. kl 03:02 Cardiovascular: No deficits noted. Respiratory: No deficits noted. Respiratory: No kl deficits noted. Vital Signs: 01:19 BP 133 / 99; Pulse 105; Resp 18; Temp 98.3(TE); Pulse Ox 100% ; Weight 43.09 kg; Height kl 4 ft. 9 in. ; Pain 7/10; 03:01 BP 107 / 65; Pulse 89; Resp 16; Pulse Ox 99% on R/A; kl 01:19 Body Mass Index 20.56 (43.09 kg, 144.78 cm) kl 01:19 Pain Scale: Adult ED Course: 01:14 Patient arrived in ED. gm2 01:15 Zay Wood MD is Attending Physician. sp4 01:21 Triage completed. kl 01:30 Influenza Screen (a \T\ B) Sent. kl 01:30 SARS-COV-2 Antigen Rapid Sent. kl 01:33 No provider procedures requiring assistance completed. kl 01:33 Patient has correct armband on for positive identification. kl 03:02 Patient did not have IV access during this emergency room visit. kl Administered Medications: 02:12 Drug: Dextromethorphan-Guaifenesin PO Liquid 10 mg-100 mg/5 mL 10 ml PO once Route: PO; kl 03:01 Follow up: Response: No adverse reaction; Marked relief of symptoms kl 02:12 Drug: Promethazine PO 25 mg PO once Route: PO; kl 03:01 Follow up: Response: No adverse reaction; Marked relief of symptoms kl 02:13 Drug: Ibuprofen PO 400 mg PO once Route: PO; kl 03:01 Follow up: Response: No adverse reaction; Marked relief of symptoms kl 02:13 Drug: Acetaminophen PO 1000 mg PO once Route: PO; kl 03:01 Follow up: Response: No adverse reaction; Marked relief of symptoms kl Outcome: 02:42 Discharge ordered by . sp4 03:02 Discharged to home ambulatory, kl 03:02 Condition: improved 03:02 Discharge instructions given to patient, Instructed on discharge instructions, follow up and referral plans. medication usage, Demonstrated understanding of instructions, follow-up care, medications, Prescriptions given X 3, 03:03 Patient left the ED. brandin Signatures: Leena Mcgee RN RN Zay Evans MD MD sp4 Leah Samano gm2
--- NOTE | 2023-09-06 02:43 | EDPHYS ---
Physician Documentation [facility] Name: Lexis Sterling Age: 43 yrs Sex: Female : 1980 Arrival Date: 09/06/2023 Time: 01:10 Bed IW1 Private MD: ED Physician Zay Wood HPI: 09/06 01:15 This 43 yrs old Female presents to ER via Unassigned with complaints of Gen sp4 complaint . 01:15 PMH -- Historical: Allergies: Doxycycline; Latex; PMHx: cervical CA; Migraines PSHx: sp4 Appendectomy; tubal ligation; . 02:45 Patient presents with moderate flulike symptoms including cough, subjective fever, sp4 chills, also some sore throat. Symptoms started 2 days ago. . Historical: - Allergies: 01:21 Doxycycline; kl 01:21 Latex; kl - Home Meds: 01:21 None [Active]; kl - PMHx: 01:21 cervical CA; Migraines; kl 01:22 Asthma; kl - PSHx: 01:21 Appendectomy; tubal ligation; kl - Immunization history:: Adult Immunizations up to date. - Social history:: Smoking status: Patient denies any tobacco usage or history of. - Family history:: not pertinent. ROS: 02:45 Constitutional: Positive fever, positive chills, positive cough, positive sore throat sp4 02:45 All other systems are negative, Exam: 02:45 Constitutional: This is a well developed, well nourished patient who is awake, alert, sp4 and in no acute distress. Head/Face: Normocephalic, atraumatic. Eyes: Pupils equal round and reactive to light, extra-ocular motions intact. Lids and lashes normal. Conjunctiva and sclera are not injected. Cornea within normal limits. Periorbital areas with no swelling, redness, or edema. ENT: Nares patent. No nasal discharge, no septal abnormalities noted. Tympanic membranes are normal and external auditory canals are clear. Oropharynx with no redness, swelling, or masses, exudates, or evidence of obstruction, uvula midline. Mucous membranes moist. Neck: Trachea midline, no thyromegaly or masses palpated, and no cervical lymphadenopathy. Supple, full range of motion without nuchal rigidity, or vertebral point tenderness. Chest/axilla: Normal chest wall appearance and motion. Nontender with no deformity. No lesions are appreciated. Cardiovascular: Regular rate and rhythm with a normal S1 and S2. No gallops, murmurs, or rubs. Normal PMI, no JVD. No pulse deficits. Respiratory: Lungs have equal breath sounds bilaterally, clear to auscultation and percussion. No rales, rhonchi or wheezes noted. No increased work of breathing, no retractions or nasal flaring. Abdomen/GI: Soft, non-tender, with normal bowel sounds. No distension or tympany. No guarding or rebound. No evidence of tenderness throughout. Back: No spinal tenderness. No costovertebral tenderness. Skin: Warm, dry with normal turgor. Normal color with no rashes, no lesions, and no evidence of cellulitis. MS/ Extremity: Pulses equal, no cyanosis. Neurovascular intact. Full, normal range of motion. Neuro: Awake and alert, GCS 15, oriented to person, place, time, and situation. Cranial nerves II-XII grossly intact. Motor strength 5/5 in all extremities. Sensory grossly intact. Psych: Awake, alert, with orientation to person, place and time. Behavior, mood, and affect are within normal limits Vital Signs: 01:19 BP 133 / 99; Pulse 105; Resp 18; Temp 98.3(TE); Pulse Ox 100% ; Weight 43.09 kg; Height kl 4 ft. 9 in. ; Pain 7/10; 03:01 BP 107 / 65; Pulse 89; Resp 16; Pulse Ox 99% on R/A; kl 01:19 Body Mass Index 20.56 (43.09 kg, 144.78 cm) kl 01:19 Pain Scale: Adult kl MDM: 01:37 Patient medically screened. sp4 02:47 Differential Diagnosis altered mental status, sepsis, flu. Data reviewed: vital signs, sp4 nurses notes, lab test result(s), Flu: negative. ED course: Positive COVID-19. Patient warrants 5-day release from work at home quarantine for 5 days. Also Paxlovid for 5 days, as needed fezy-xgv-tnkprlx dextromethorphan, as needed mqqu-yxt-gjycoew Tylenol and ibuprofen. GRIPTION Zofran as needed for nausea. 09/06 01:23 Order name: SARS-COV-2 Antigen Rapid; Complete Time: 02:36 kl 09/06 01:23 Order name: Influenza Screen (a \T\ B); Complete Time: 02:36 kl Administered Medications: 02:12 Drug: Dextromethorphan-Guaifenesin PO Liquid 10 mg-100 mg/5 mL 10 ml PO once Route: PO; kl 03:01 Follow up: Response: No adverse reaction; Marked relief of symptoms kl 02:12 Drug: Promethazine PO 25 mg PO once Route: PO; kl 03:01 Follow up: Response: No adverse reaction; Marked relief of symptoms kl 02:13 Drug: Ibuprofen PO 400 mg PO once Route: PO; kl 03:01 Follow up: Response: No adverse reaction; Marked relief of symptoms kl 02:13 Drug: Acetaminophen PO 1000 mg PO once Route: PO; kl 03:01 Follow up: Response: No adverse reaction; Marked relief of symptoms kl Disposition Summary: 09/06/23 02:42 Discharge Ordered Problem: new sp4 Symptoms: have improved sp4 Condition: Stable sp4 Diagnosis - Other specified viral diseases sp4 - Acute COVID-19 sp4 Followup: sp4 - With: Private Physician - When: 7 - 10 days - Reason: Recheck today's complaints Discharge Instructions: - Discharge Summary Sheet sp4 - COVID-19 sp4 Forms: - Work release form kl - Patient Portal Instructions sp4 Prescriptions: - Paxlovid 300 mg (150 mg x 2)-100 mg Oral Tablet, Dose Pack - take 1 dose pack ORAL route as directed on dose pack take TWO 150 mg tablets of sp4 nirmatrelvir with ONE 100 mg tablet of ritonavir twice daily for 5 days; 1 Pack; Refills: 0, Product Selection Permitted - ondansetron 8 mg Oral Tablet,disintegrating - take 1 tablet ORAL route every 8 hours PRN nausea; 30 tablet; Refills: 0, sp4 Product Selection Permitted Signatures: Dispatcher [employer] Leena Birmingham RN RN kl Potepalov, Sergey, MD MD sp4
[2023-09-06 07:36] VITALS: TEMP 98.3
[2023-09-06 07:50] VITALS: BP 107/65; O2SAT 99
== END ==
LOC: ER 01:10
DX: U07.1 COVID-19 (principal); B33.8 Other specified viral diseases
CPT/HCPCS: 36415; 87804; 87811; 99283; Q0169

== ENCOUNTER 2024-04-13 18:03 | Emergency (ER) | payer SELFPAY ==
--- OUTSIDE RECORDS SUMMARY | 2024-04-13 18:05 | XMS REPORT | Continuity of Care Document ---
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 ON 9 [id number] 2024 00:00:00 [facility] JOAQUIN JASON COPAY FOCUS 9 [id number] 2023 00:00:00 Problems Condition Name Condition Details Condition Category Status Onset Date Resolution Date Last Treatment Date Treating Clinician Comments Source Skin lesion of back Skin lesion of back Disease Active 02-08 00:00: 00 Jagruti Costa Externa mack Mild major depression Mild major depression Disease Active 02-01 00:00: 00 Jagruti Kaur - Externa mack Malnourish ed (multi HCC) Malnourish ed (multi HCC) Disease Active 01-24 00:00: 00 Jagruti Costa Externa mack Vitamin D deficiency Vitamin D deficiency Disease Active 01-24 00:00: 00 Jagruti Kaur - Externa l Anxiety Anxiety Disease Active 01-24 00:00: 00 Jagruti Costa Externa mack Depression Depression Disease Active Kristel Kaur - Externa l Allergies, Adverse Reactions, Alerts Allergy Name Allergy Type Status Severity Reaction(s) Onset Date Inactive Date Treating Clinician Comments Source Doxycycl ine Propensi ty to adverse reaction s Active Hives 01-22 00:00: 00 Jagruti Jacoba mack Latex Propensi ty to adverse reaction s Active Rash 01-22 00:00: 00 Jagruti Simmons l Social History Social Habit Start Date Stop Date Quantity Comments Source Sexual orientation Kristel tabares Natasha - External Alcoholic beverage intake 2024-02-09 00:00:00 2024-02-09 00:00:00 Lifetime non-drinker (finding) Jagruti Kaur - External History of Social function 2024-01-23 00:00:00 2024-01-23 00:00:00 Jagruti Kaur - External Tobacco use and exposure 2024-01-23 00:00:00 2024-01-23 00:00:00 Smokeless tobacco non-user Jagruti Kaur - External Sex [birth year] at 1980 00:00:00 1980 00:00:00 Jagruti Kaur - External Smoking Status Start Date Stop Date Source Never smoked tobacco Jagruti Kaur - External Medications Ordered Medication Name Filled Medication Name Start Date Stop Date Current Medication? Ordering Clinician Indication Dosage Frequency Signature (SIG) Comments Components Source Mupirocin (BACTROBAN) 2 % apply externally Ointment 02-01 00:00: 00 02-08 00:00 :00 No [id number] 1{appli cation} Apply 1 Applicatio n topically 2 times daily. Jagruti giron Famotidine (PEPCID) 20 MG oral tablet 02-01 00:00: 00 02-08 00:00 :00 No [id number] 20mg Take 1 tablet (20 mg total) by mouth 2 times daily. Jagruti giron Amitriptyli ne HCl 25 MG oral Tablet 01-24 00:00: 00 Yes [id number] 25mg Take 1 tablet (25 mg total) by mouth at bedtime. Jagruti giron busPIRone HCl 5 MG oral Tablet 01-24 00:00: 00 Yes [id number] 5mg Take 1 tablet (5 mg total) by mouth 3 times daily. Jagruti Natasha Jacoba mack Trazodone HCl 50 MG oral Tablet 01-24 00:00: 00 Yes [id number] 25mg Take 0.5 tablets (25 mg total) by mouth nightly. Jagruti Costa Externa l Immunizations Ordered Immunization Name Filled Immunization Name Date Status Comments Source PPD-Protein Derivative (Purified)- Tuberculin Unknown Completed Jagruti Semattim - External Vital Signs Vital Name Observation Time Observation Value Comments S ource Systolic blood pressure 2024-02-09 20:02:00 104 mm[Hg] Jagruti Bro ld - External Diastolic blood pressure 2024-02-09 20:02:00 60 mm[Hg] Jagruti Shabazzo ld - External Heart rate 2024-02-09 20:02:00 102 /min Jase shirley Kaur - External Body temperature 2024-02-09 20:02:00 36.83 Helena Jagruti Kaur - External Respiratory rate 2024-02-09 20:02:00 18 /min Jagruti Kaur - External Body height 2024-02-09 20:02:00 144.8 cm Danni Kaur - External Body weight 2024-02-09 20:02:00 36.741 kg Danni Kaur - External BMI 2024-02-09 20:02:00 17.53 kg/m2 Danni Kaur - External Oxygen saturation in Arterial blood by Pulse oximetry 2024-02-09 20:02:00 99 /min Jagruti Bro ld - External Systolic blood pressure 2024-02-02 13:05:00 102 mm[Hg] Jagruti Bro ld - External Diastolic blood pressure 2024-02-02 13:05:00 60 mm[Hg] Jagruti Bro ld - External Heart rate 2024-02-02 13:05:00 90 /min Kim Kaur - External Body temperature 2024-02-02 13:05:00 36.89 Helena Jagruti Shabazzold - External Respiratory rate 2024-02-02 13:05:00 18 /min Jagruti Shabazzold - External Body height 2024-02-02 13:05:00 144.8 cm Danni ey Seybold - External Body weight 2024-02-02 13:05:00 36.401 kg Danni ey Seybold - External BMI 2024-02-02 13:05:00 17.37 kg/m2 Danni ey Seybold - External Oxygen saturation in Arterial blood by Pulse oximetry 2024-02-02 13:05:00 98 /min Jagruti Seybo ld - External Systolic blood pressure 2024-01-25 21:17:00 110 mm[Hg] Jagruti Seybo ld - External Diastolic blood pressure 2024-01-25 21:17:00 64 mm[Hg] Jagruti Seybo ld - External Heart rate 2024-01-25 21:17:00 74 /min Kim y Seybold - External Respiratory rate 2024-01-25 21:17:00 16 /min Jagruti Seybold - External Body height 2024-01-25 21:17:00 144.8 cm Danni ey Seybold - External Body weight 2024-01-25 21:17:00 34.927 kg Danni ey Seybold - External BMI 2024-01-25 21:17:00 16.66 kg/m2 Danni ey Seybold - External Oxygen saturation in Arterial blood by Pulse oximetry 2024-01-25 21:17:00 98 /min Jagruti Shabazzo ld - External Encounters Start Date/Time End Date/Time Encounter Type Admission Type Attending [facility] Care Department Encounter ID Source 2024-06-04 09:15:00 2024-06-04 09:15:00 Outpatient JAGRUTI HAMPTON [id number] Jagruti Kaur 2024-06-04 08:30:00 2024-06-04 08:30:00 Outpatient JAGRUTI HAMPTON [id number] Jagruti camilo 2024-04-05 00:00:00 2024-04-05 00:00:00 Outpatient SHONDA DAVILA [id number] Jagurti Kaur 2024-04-03 11:30:00 2024-04-03 11:30:00 Outpatient JAGRUTI HAMPTON [id number] Jagruti Kaur 2024-04-03 10:45:00 2024-04-03 10:45:00 Outpatient [facility] HAMPT[facility] [id number] [facility] 2024-03-12 00:00:00 2024-03-12 00:00:00 Outpatient SHONDA DAVILA [facility]AM[facility] [id number] [facility] 2024-02-26 08:00:00 2024-02-26 08:00:00 Outpatient SHONDA DAVILA [facility]AMPT[facility] [id number] [facility] 2024-02-23 11:15:00 2024-02-23 11:15:00 Outpatient HAROON RÍOS JAGRUTI HAMPTON [id number] [facility] 2024-02-18 00:00:00 2024-02-18 00:00:00 Outpatient SHONDA DAVILA JAGRUTI HAMPTON [id number] Jagruti [facility] 2024-02-16 00:00:00 2024-02-16 00:00:00 Outpatient NAHID CHUNG [facility] [id number] [facility]24-02-15 00:00:00 2024-02-15 00:00:00 Outpatient SHONDA DAVILA [facility] [id number] [facility] 2024-02-13 00:00:00 2024-02-13 00:00:00 Outpatient SHONDA DAVILA [facility]UTI HAMPTON [id number] [facility] 2024-02-13 00:00:00 2024-02-13 00:00:00 Outpatient TONO PEÑA JAGRUTI HAMPTON [id number] [facility] 2024-02-13 00:00:00 2024-02-13 00:00:00 Outpatient SHONDA DAVILA [facility] [id number] [facility] 2024-02-09 15:55:00 2024-02-09 15:55:00 Outpatient LABWilfrid JAGRUTI HAMPTON [id number] [facility] 2024-02-09 15:00:00 2024-02-09 15:00:00 Outpatient SHONDA DAVILA [facility]AMPTON [id number] [facility] 2024-02-09 00:00:00 2024-02-09 00:00:00 Outpatient SHONDA DAVILA [facility]AMPT[facility] [id number] [facility] 2024-02-07 08:00:00 2024-02-07 08:00:00 Outpatient NEGRITO CAVAZOSSEY [id number] [facility] 2024-02-02 09:15:00 2024-02-02 09:15:00 Outpatient RAAD DILLARDSEY [id number] [facility] 2024-02-02 08:30:00 2024-02-02 08:30:00 Outpatient SHONDA DAVILASEY [id number] [facility] 2024-02-01 08:00:00 2024-02-01 08:00:00 Outpatient NEGRITO CAVAZOSSEY [id number] [facility] 2024-01-30 08:00:00 2024-01-30 08:00:00 Outpatient NEGRITO CAVAZOS JAGRUTI [id number] [facility] 2024-01-29 08:30:00 2024-01-29 08:30:00 Outpatient MACY, NEGRITO HAMPTON JAGRUTI [id number] Jagruti [facility] 2024-01-25 16:30:00 2024-01-25 16:30:00 Outpatient SHONDA DAVILA JAGRUTI HAMPTON [id number] [facility] Notes Date/Time Note Provider Source 2024-02-09 15:12:46 Chief Complaint Patient presents with Bite Has bites to her back Kasia Medina LVN [facility] 2024-02-02 08:09:45 Chief Complaint Patient presents with Follow-up Itching all over for Kasia Medina LVN [facility] 2024-01-25 16:24:49 Chief Complaint Patient presents with New Patient Establish Care Needs refills on medications Kasia Medina LVN [facility]
[2024-04-13] MEDS ORDERED: ASPIRIN 81 MG CHEWABLE TABLET ONE (18:42)
[2024-04-13 18:56] LABS: Absolute Eosinophils 0.1 K/uL (0-0.5); Absolute Lymphocytes (CBC) 2.9 K/uL (0.7-4.9); Absolute Monocytes 0.5 K/uL (0.1-1.3); Absolute Neutrophil 3.1 K/uL (1.8-8.0); Basophils % 0.4 % (0-1.3); Eosinophils % 1.9 % (0-4.4); Hematocrit 38.4 % (36.0-45.0); Hemoglobin 12.8 g/dL (12.0-15.0); Lymphocytes % 43.4 % (15.3-44.8); MCHC 33.4 g/dL (32.0-36.0); MPV 7.1 fL (7.6-11.3); Monocytes % 7.9 % (3.3-12.3); Neutrophils % 46.4 % (41.7-73.7); Nucleated Red Blood Cells % 0.2 % (0-0); Platelets 287 thou/uL (152-406); RBC Red Blood Cell Count 4.41 M/uL (3.86-4.86)
[2024-04-13 19:05] LABS: PT Prothrombin Time 10.6 SECONDS (9.4-12.5); Protime INR 0.94
[2024-04-13 19:20] LABS: ALT/SGPT 31 U/L (13-56); AST/SGOT 20 U/L (15-37); Albumin 3.2 g/dL (3.4-5.0); Alkaline Phosphatase 105 U/L (45-117); Anion Gap 8.9 mEq/L (5.0-15.0); BUN Blood Urea Nitrogen 16 mg/dL (7-18); Bicarbonate 26 mEq/L (21-32); Bilirubin Direct < 0.2 mg/dL (0-0.2); Bilirubin Total < 0.2 mg/dL (0.2-1.0); Globulin 3.3 g/dL (2.3-3.5); Glomerular Filtration Rate 110 ml/min (=/>90); Glucose Level 100 mg/dL (74-106); Magnesium 1.9 mg/dL (1.6-2.4); NT PRO-BNP 40 pg/mL (<125); Potassium 3.9 mEq/L (3.5-5.1); Protein, Total 6.5 g/dL (6.4-8.2); Sodium Level 139 mEq/L (136-145); Troponin High Sensitivity 3.4 pg/mL (<58.9)
[2024-04-13 19:21] LABS: Thyroid Stimulating Hormone < 0.005 uIU/mL (0.358-3.740)
[2024-04-13] MEDS ORDERED: NA CHLORIDE 0.9% 1,000 ML ONE (19:31)
--- NOTE | 2024-04-13 19:31 | RAD REPORT ---
EXAM DESCRIPTION: CT - Head Brain Wo Cont - 04/13/2024 7:19 pm CLINICAL HISTORY: NUMBNESS Headache, drowsiness COMPARISON: <Comparisons> TECHNIQUE: All CT scans are performed using dose optimization technique as appropriate and may inclu de automated exposure control or mA/KV adjustment according to patient size. FINDINGS: No intracranial hemorrhage, hydrocephalus or extra-axial fluid collection.No areas of brai n edema or evidence of midline shift. The paranasal sinuses and mastoids are clear. The calvarium is intact. IMPRESSION: No acute intracranial abnormality.
--- NOTE | 2024-04-13 19:44 | RAD REPORT ---
EXAM DESCRIPTION: RAD - Chest Single View - 04/13/2024 7:37 pm CLINICAL HISTORY: CHEST PAIN Chest pain. COMPARISON: <Comparisons> FINDINGS: Portable technique limits examination quality. The lungs are grossly clear. The heart is normal in size. No displaced fractures. IMPRESSION: No acute intrathoracic process suspected.
--- NOTE | 2024-04-13 20:09 | RAD REPORT ---
EXAM DESCRIPTION: CT - Chest For Pe Angio - 04/13/2024 8:02 pm CLINICAL HISTORY: Chest pain. CHEST PAIN COMPARISON: <Comparisons> TECHNIQUE: CT angiogram of the pulmonary arteries was performed with MIP. All CT scans are performed using dose optimization technique as appropriate and may include automated exposure control or mA/KV adjustment according to patient size. FINDINGS: No evidence of pulmonary thromboembolism. No acute aortic finding demonstrated. The lungs are clear. No significant pericardial or pleural fluid. No concerning bony finding. IMPRESSION: No evidence of pulmonary thromboembolism. No acute lung findings.
[2024-04-13] MEDS ORDERED: HYDROCODONE/APAP 5/325 MG TAB ONE (21:12)
--- NOTE | 2024-04-13 22:46 | EDPHYS ---
Physician Documentation [facility] Name: Lexis Sterling Age: 43 yrs Sex: Female : 1980 Arrival Date: 04/13/2024 Time: 18:03 Bed 8 Private MD: ED Physician Christopher García HPI: 04/13 18:47 This 43 yrs old Female presents to ER via Ambulatory with complaints of sb4 Numbness Of Arm, Chest Pain. 18:52 The patient or guardian reports chest pain that is located primarily in the substernal sb4 area. Onset: just prior to arrival. The pain radiates to the right arm. Associated signs and symptoms: Pertinent positives: nausea, near-syncope, palpitations. The chest pain is described as squeezing. Severity of pain: in the emergency department the pain is a 9 / 10. The patient has not experienced similar symptoms in the past. The patient has been recently seen at the [facility] Emergency Department, yesterday, for unrelated complaints. Historical: - Allergies: 18:11 Doxycycline; kc6 - PMHx: 18:11 Anxiety; Asthma; Breast Augmentation; cervical CA; Migraines; thyroid issues; kc6 - PSHx: 18:11 Appendectomy; tubal ligation; kc6 - Immunization history:: Client reports receiving the 2nd dose of the Covid vaccine. - Infectious Disease History:: Denies. - Social history:: Smoking status: Patient denies any tobacco usage or history of. ROS: 18:52 Constitutional: Negative for fever, chills, and weight loss, sb4 18:52 Cardiovascular: Positive for chest pain, palpitations, 18:52 All other systems are negative, Exam: 18:52 Head/Face: Normocephalic, atraumatic. Eyes: Extra-ocular motions intact. Periorbital sb4 areas with no swelling, redness, or edema. ENT: Mucous membranes moist. Respiratory: Lungs have equal breath sounds bilaterally, clear to auscultation and percussion. No rales, rhonchi or wheezes noted. No increased work of breathing, no retractions or nasal flaring. Abdomen/GI: Soft, non-tender, no distension. Skin: Warm, dry with normal turgor. Normal color with no rashes, no lesions, and no evidence of cellulitis. MS/ Extremity: Pulses equal, no cyanosis. Neurovascular intact. Full, normal range of motion. 18:52 Constitutional: The patient appears alert, awake, anxious, uncomfortable, 18:52 Cardiovascular: Rate: tachycardic, Rhythm: regular, Vital Signs: 18:10 BP 108 / 69; Pulse 106; Resp 18; Temp 97.6(TE); Pulse Ox 99% ; Weight 45.36 kg; Height kc6 4 ft. 9 in. ; Pain 10/10; 18:30 BP 102 / 65; Pulse 101; Resp 18; Pulse Ox 100% on R/A; db 20:42 BP 100 / 68; Pulse 82; Resp 14; Temp 98.2; Pulse Ox 100% ; jm12 22:45 BP 98 / 58; Pulse 113; Resp 14; Pulse Ox 100% ; jm12 23:01 BP 102 / 64; Pulse 104; Resp 17; Temp 98.2; Pulse Ox 98% on R/A; Pain 0/10; tm6 18:10 Body Mass Index 21.64 (45.36 kg, 144.78 cm) kc6 18:10 Pain Scale: Adult kc6 23:01 Pain Scale: Adult tm6 MDM: 18:25 Patient medically screened. sb4 20:12 The patient was given aspirin in the Emergency Department. Data reviewed: vital signs, sb4 nurses notes, lab test result(s), EKG, radiologic studies, and as a result, I will discharge patient. Consideration of Admission/Observation Escalation of care including admission/observation considered. Scoring Tools HEART Score: History: ECG: Age: Risk Factors: 1 or 2 risk factors (1), Troponin: Total Score = 2. Counseling: I had a detailed discussion with the patient and/or guardian regarding the historical points, exam findings, and any diagnostic results supporting the discharge/admit diagnosis, lab results, radiology results, the need for outpatient follow up, a insights manager, to return to the emergency department if symptoms worsen or persist or if there are any questions or concerns that arise at home. 04/13 18:26 Order name: Basic Metabolic Panel; Complete Time: 19:23 sb4 04/13 18:26 Order name: CBC with Diff; Complete Time: 18:58 sb4 04/13 18:26 Order name: LFT's; Complete Time: 19:23 sb4 04/13 18:26 Order name: Magnesium; Complete Time: 19:23 sb4 04/13 18:26 Order name: NT PRO-BNP; Complete Time: 19:23 sb4 04/13 18:26 Order name: PT-INR; Complete Time: 19:05 sb4 04/13 18:26 Order name: Troponin HS; Complete Time: 19:23 sb4 04/13 18:36 Order name: TSH; Complete Time: 19:51 sb4 04/13 19:33 Order name: Add On-Lab; Complete Time: 21:30 sb4 04/13 19:38 Order name: T4,Total; Complete Time: 21:57 EDMS 04/13 19:39 Order name: T4 Free; Complete Time: 19:51 EDMS /03 20:10 Order name: Troponin HS; Complete Time: 22:43 sb4 04/13 18:26 Order name: XRAY Chest (1 view); Complete Time: 19:45 sb4 04/13 18:27 Order name: Head Brain Wo Cont CT; Complete Time: 19:32 sb4 04/13 19:26 Order name: CT Chest For PE Angio; Complete Time: 20:10 sb4 04/13 18:26 Order name: Cardiac monitoring; Complete Time: 18:45 sb4 04/13 18:26 Order name: EKG - Nurse/Tech; Complete Time: 18:45 sb4 04/13 18:26 Order name: IV Saline Lock; Complete Time: 18:45 sb4 04/13 18:26 Order name: Labs collected and sent; Complete Time: 18:45 sb4 04/13 18:26 Order name: O2 Per Protocol; Complete Time: 18:45 sb4 04/13 18:26 Order name: O2 Sat Monitoring; Complete Time: 18:45 sb4 EC:27 Rate is 108 beats/min. Rhythm is regular, Sinus tachycardia. DE interval is normal at sb4 120 msec. QRS interval is normal at 72 msec. QT interval is normal at 312 msec. No Q waves. T waves are Normal. No ST changes noted. Clinical impression: Sinus tachycardia and No evidence of ischemia. Interpreted by me. Reviewed by me. Administered Medications: 18:40 Drug: Aspirin PO Chewable Tablet 324 mg PO once; 81 mg tablets x 4 Route: PO; db 19:35 Drug: NS 0.9% IV 1000 ml IV at 1 bolus Per protocol; 1000 mL bolus Route: IV; Rate: 1 jm12 bolus; Site: left antecubital; 21:17 Drug: HYDROcodone-acetaminophen PO 5 mg-325 mg 1 tabs PO once Route: PO; tm6 Disposition: 20:22 Co-signature as Attending Physician, Christopher García MD I reviewed the patient's care rt provided by the Advanced Practice Provider and agree with the diagnosis and treatment plan. Disposition Summary: 04/13/24 22:46 Discharge Ordered Notes: Location: Home sb4 Problem: new sb4 Symptoms: have improved sb4 Condition: Stable sb4 Diagnosis - Chest pain, unspecified sb4 Followup: sb4 - With: Emergency Department - When: As needed - Reason: Trouble breathing, Worsening of condition Discharge Instructions: - Discharge Summary Sheet sb4 - Nonspecific Chest Pain, Adult, Mglx-wc-[place] sb4 Forms: - Patient Portal Instructions sb4 - Leadership Thank You Letter sb4 - Work release form tm6 Signatures: Dispatcher [employer] EDKeila Alberto, RN RN kc6 Tomeka Salguero, RN RN Maritza Tidwell, PA-C PA-C sb4 Christopher García MD MD rt Delia So RN RN tm6 Aura Quick, RN RN jm12 Corrections: (The following items were deleted from the chart) 18:27 18:26 BASIC METABOLIC PANEL+C.LAB.BRZ ordered. EDOH EDMS 18:27 18:26 CBC+H.LAB.BRZ ordered. EDOH EDMS 18:27 18:26 HEPATIC FUNCTION+C.LAB.BRZ ordered. EDOH EDMS 18:27 18:26 MAGNESIUM+C.LAB.BRZ ordered. EDOH EDMS 18:27 18:26 PROBNP+C.LAB.BRZ ordered. EDOH EDMS 18:27 18:26 PROTIME (+INR)+COAG.LAB.BRZ ordered. EDOH EDMS 18:27 18:26 Troponin High Sensitivity+C.LAB.BRZ ordered. EDOH EDMS 18:27 18:27 Chest Single View+RAD.RAD.BRZ ordered. EDOH EDMS 19:04 18:52 The patient has not recently seen a physician, sb4 sb4 20:11 20:11 Troponin High Sensitivity+C.LAB.BRZ ordered. EDMS EDMS
--- NOTE | 2024-04-13 22:46 | ER ---
Nurse's Notes [facility] Name: Lexis Sterling Age: 43 yrs Sex: Female : 1980 Arrival Date: 04/13/2024 Time: 18:03 Bed 8 Private MD: Diagnosis: Chest pain, unspecified Presentation: 04/13 18:10 Chief complaint: Patient states: Chest pain, lips and right arm numbness. Onset about kc6 30 min ago. Coronavirus screen: Vaccine status: Patient reports receiving the 2nd dose of the covid vaccine. Ebola Screen: Patient denies travel to an Ebola-affected area in the 21 days before illness onset. Initial Sepsis Screen: Does the patient meet any 2 criteria? HR > 90 bpm. No. Patient's initial sepsis screen is negative. Does the patient have a suspected source of infection? No. Patient's initial sepsis screen is negative. Risk Assessment: Do you want to hurt yourself or someone else? Patient reports no desire to harm self or others. Onset of symptoms was April 13, 2024 at 17:30. 18:10 Method Of Arrival: Ambulatory 6 18:10 Acuity: JD 3 kc6 Historical: - Allergies: 18:11 Doxycycline; kc6 - PMHx: 18:11 Anxiety; Asthma; Breast Augmentation; cervical CA; Migraines; thyroid issues; kc6 - PSHx: 18:11 Appendectomy; tubal ligation; kc6 - Immunization history:: Client reports receiving the 2nd dose of the Covid vaccine. - Infectious Disease History:: Denies. - Social history:: Smoking status: Patient denies any tobacco usage or history of. Screenin:39 [facility] ED Fall Risk Assessment (Adult) History of falling in the last 3 months, db including since admission No falls in past 3 months (0 pts) Confusion or Disorientation No (0 pts) Intoxicated or Sedated No (0 pts) Impaired Gait No (0 pts) Mobility Assist Device Used No (0 pt) Altered Elimination No (0 pt) Score/Fall Risk Level 0 - 2 = Low Risk Oriented to surroundings, Maintained a safe environment. Abuse screen: Denies threats or abuse. Denies injuries from another. Nutritional screening: No deficits noted. Tuberculosis screening: No symptoms or risk factors identified. Assessment: 18:38 Reassessment: Patient appears in no apparent distress at this time. Patient and/or db family updated on plan of care and expected duration. Pain level reassessed. Patient is alert, oriented x 3, equal unlabored respirations, skin warm/dry/pink. General: Appears in no apparent distress. comfortable, Behavior is calm, cooperative. Pain: Complains of pain in chest Pain does not radiate. Pain began gradually. Neuro: Level of Consciousness is awake, alert, obeys commands, Oriented to person, place, time, situation. Cardiovascular: Reports chest pain. 18:46 Respiratory: Airway is patent Respiratory effort is even, unlabored, Respiratory db pattern is regular, symmetrical. GI: No deficits noted. No signs and/or symptoms were reported involving the gastrointestinal system. : No deficits noted. No signs and/or symptoms were reported regarding the genitourinary system. 23:01 Reassessment: Patient appears in no apparent distress at this time. Patient and/or tm6 family updated on plan of care and expected duration. Pain level reassessed. Patient is alert, oriented x 3, equal unlabored respirations, skin warm/dry/pink. Vital Signs: 18:10 BP 108 / 69; Pulse 106; Resp 18; Temp 97.6(TE); Pulse Ox 99% ; Weight 45.36 kg; Height kc6 4 ft. 9 in. ; Pain 10/10; 18:30 BP 102 / 65; Pulse 101; Resp 18; Pulse Ox 100% on R/A; db 20:42 BP 100 / 68; Pulse 82; Resp 14; Temp 98.2; Pulse Ox 100% ; jm12 22:45 BP 98 / 58; Pulse 113; Resp 14; Pulse Ox 100% ; jm12 23:01 BP 102 / 64; Pulse 104; Resp 17; Temp 98.2; Pulse Ox 98% on R/A; Pain 0/10; tm6 18:10 Body Mass Index 21.64 (45.36 kg, 144.78 cm) kc6 18:10 Pain Scale: Adult kc6 23:01 Pain Scale: Adult tm6 Vitals: 18:30 Cardiac Rhythm Assessment Regular. db ED Course: 18:05 Patient arrived in ED. im 18:11 Triage completed. kc6 18:12 Arm band placed on left wrist. kc6 18:25 [facility] Emery [facility] sb4 18:25 Christopher García MD is Attending Physician. sb4 18:38 EKG done, by ED staff. Inserted saline lock: 22 gauge in left antecubital area, using db aseptic technique. Blood collected. Flushed with 10 mL NS BY OTHER STAFF. 18:39 Patient has correct armband on for positive identification. Bed in low position. Call db light in reach. Side rails up X 1. Client placed on continuous cardiac and pulse oximetry monitoring. NIBP monitoring applied. clinical research monitor on. Pulse ox on. NIBP on. Warm blanket given. Pillow given. 18:46 Provided Education on: LABS . db 18:46 No provider procedures requiring assistance completed. Patient maintains SpO2 db saturation greater than 95% on room air. 19:21 Head Brain Wo Cont CT In Process Unspecified. EDMS 19:39 XRAY Chest (1 view) In Process Unspecified. EDMS 20:04 CT Chest For PE Angio In Process Unspecified. EDMS 20:42 No apparent distress. Pt up to bathroom in stable condition. jm12 21:17 Delia So, RN is Primary Nurse. tm6 21:30 Add On-Lab Sent. sb4 22:13 Troponin HS Sent. tm6 23:02 IV discontinued, intact, bleeding controlled, No redness/swelling at site. Pressure tm6 dressing applied. Administered Medications: 18:40 Drug: Aspirin PO Chewable Tablet 324 mg PO once; 81 mg tablets x 4 Route: PO; db 19:35 Drug: NS 0.9% IV 1000 ml IV at 1 bolus Per protocol; 1000 mL bolus Route: IV; Rate: 1 jm12 bolus; Site: left antecubital; 21:17 Drug: HYDROcodone-acetaminophen PO 5 mg-325 mg 1 tabs PO once Route: PO; tm6 Medication: 18:46 VIS not applicable for this client. db Outcome: 22:46 Discharge ordered by . sb4 23:01 Discharged to home ambulatory, with family, tm6 23:01 Condition: stable 23:01 Discharge instructions given to patient, family, Instructed on discharge instructions, follow up and referral plans. Demonstrated understanding of instructions, follow-up care, 23:02 Patient left the ED. tm6 Signatures: Dispatcher [employer] Keila May, RN RN kc6 Tomeka Salguero RN RN Maritza Tidwell PA-C PA-C sb4 Rosalina Evans Tawney, RN RN tm6 Aura Quick, RN RN jm12
[2024-04-14 04:08] VITALS: TEMP 98.2
[2024-04-14 04:10] VITALS: BP 102/64; O2SAT 98
--- NOTE | 2024-04-15 17:02 | EKG ---
Test Date: 2024-04-13 Test Time: 18:17:50 Intelligence Specialist: QUANG MEASUREMENT RESULTS: Intervals: Rate: 108 DE: 120 QRSD: 72 QT: 312 QTc: 418 [place]: P: 46 DE: 120 QRS: 70 T: 77 INTERPRETIVE STATEMENTS: Sinus tachycardia Otherwise normal ECG Compared to ECG 02/19/2024 01:51:10 Sinus rhythm no longer present Electronically Signed On 04-15-24 16:57:39 CDT by Seng Unger
== END 2024-04-13 23:02 | disposition home or self-care (01) ==
LOC: ER 18:03
DX: R07.9 Chest pain, unspecified (principal)
CPT/HCPCS: 36415; 70450; 71045; 71275; 80048; 80076; 83735; 83880; 84436; 84439; 84443; 84484; 85025; 85610; 93005; 99285; J7030; Q9967

== ENCOUNTER 2024-07-16 17:26 | Emergency (ER) | payer SELFPAY ==
--- OUTSIDE RECORDS SUMMARY | 2024-07-16 17:31 | XMS REPORT | Continuity of Care Document ---
Author Name Unknown Address [address] [facility] [address] th[address] Address [address] [facility] [address] [place] [address] Care Team Providers Care Air Plant Engineer Name Role Phone SHONDA DAVILA Attending Clinician Unavailab HAROON De León Attending Clinician Unavailable NAHID CHUNG Attending Clinician Unava TONO Oreilly Attending Clinician Unavailable LAB90 Attending Clinician Unavailable MACY INDEPENDENCE Attending Clinician Unavailabl e Payers Payer Name Policy Type Policy Number Effective Date Expirati on Date Source AETNA MP [employer] S[employer]VER 5 HMO PACS SPECIALIST 94 [place] 9 [id number] 2024 00:00:00 [facility] JOAQUIN JASON COPAY FOCUS 9 [id number] 2023 00:00:00 Problems Condition Name Condition Details Condition Category Status Onset Date Resolution Date Last Treatment Date Treating Clinician Comments Source Skin lesion of back Skin lesion of back Disease Active 02-08 00:00: 00 Jagruti Costa Externa mack Mild major depression Mild major depression Disease Active 02-01 00:00: 00 Jagruti Costa Externa mack Malnourish ed (multi HCC) Malnourish ed (multi HCC) Disease Active 01-24 00:00: 00 Jagruti Costa Externa mack Vitamin D deficiency Vitamin D deficiency Disease Active 01-24 00:00: 00 Jagruti Costa Externa mack Anxiety Anxiety Disease Active 01-24 00:00: 00 Jagruti Costa Externa l Depression Depression Disease Active Kristel tabares Natasha Jacoba l Allergies, Adverse Reactions, Alerts Allergy Name Allergy Type Status Severity Reaction(s) Onset Date Inactive Date Treating Clinician Comments Source Doxycycl ine Propensi ty to adverse reaction s Active Hives 01-22 00:00: 00 Jagruti giron Latex Propensi ty to adverse reaction s Active Rash 01-22 00:00: 00 Jagruti Simmons l Social History Social Habit Start Date Stop Date Quantity Comments Source Sexual orientation Kristel yashshirley Natasha - External Alcoholic beverage intake 2024-02-09 [...] 02-01 00:00: 00 02-08 00:00 :00 No [id number] 1{appli cation} Apply 1 Applicatio n topically 2 times daily. Jagruti giron Famotidine (PEPCID) 20 MG oral tablet 02-01 00:00: 00 02-08 00:00 :00 No [id number] 20mg Take 1 tablet (20 mg total) by mouth 2 times daily. Jagruti giron Amitriptyli ne HCl 25 MG oral Tablet 01-24 00:00: 00 Yes [id number] 25mg Take 1 tablet (25 mg total) by mouth at bedtime. Jagruti Seybold - Externa l busPIRone HCl 5 MG oral Tablet 01-24 00:00: 00 Yes [id number] 5mg Take 1 tablet (5 mg total) by mouth 3 times daily. Jagruti Meletim - Externa l Trazodone HCl 50 MG oral Tablet 01-24 00:00: 00 Yes [id number] 25mg Take 0.5 tablets (25 mg total) by mouth nightly. Jagruti Natasha - Externa l Immunizations Ordered Immunization Name Filled Immunization Name Date Status Comments Source PPD-Protein Derivative (Purified)- Tuberculin Unknown Completed Jagruti Shabazzold - External Vital Signs Vital Name Observation Time Observation Value Comments S ource Systolic blood pressure 2024-02-09 20:02:00 104 mm[Hg] Jagruti Shabazzo ld - External Diastolic blood pressure 2024-02-09 20:02:00 60 mm[Hg] Jagruti Shabazzo ld - External Heart rate 2024-02-09 20:02:00 102 /min Kim watson Semattim - External Body temperature 2024-02-09 20:02:00 36.83 Helena Jagruti Ericksonybold - External Respiratory rate 2024-02-09 20:02:00 18 /min Jagruti Shabazzold - External Body height 2024-02-09 20:02:00 144.8 cm Danni Kaur - External Body weight 2024-02-09 20:02:00 36.741 kg Danni sherman Seybold - External BMI 2024-02-09 20:02:00 17.53 kg/m2 Danni sherman Seybtim - External Oxygen saturation in Arterial blood by Pulse oximetry 2024-02-09 20:02:00 99 /min Jagruti Shabazzo ld - External Systolic blood pressure 2024-02-02 13:05:00 102 mm[Hg] Jagruti Shabazzo ld - External Diastolic blood pressure 2024-02-02 13:05:00 60 mm[Hg] Jagruti Shabazzo ld - External Heart rate 2024-02-02 13:05:00 90 /min Ja y Seybold - External Body temperature 2024-02-02 13:05:00 36.89 Helena Jagruti Ericksonybold - External Respiratory rate 2024-02-02 13:05:00 18 /min Jagruti Seybold - External Body height 2024-02-02 13:05:00 144.8 [...] End Date/Time Encounter Type Admission Type Attending [facility] Care Department Encounter ID Source 2024-06-04 09:15:00 2024-06-04 09:15:00 Outpatient JAGRUTI HAMPTON [id number] Jagruti Ericksonybtim 2024-06-04 08:30:00 2024-06-04 08:30:00 Outpatient JAGRUTI HAMPTON [id number] Jagruti Kaur 2024-05-08 00:00:00 2024-05-08 00:00:00 Outpatient SHONDA DAVILA [id number] Jagruti Ericksonybtim 2024-04-05 00:00:00 2024-04-05 00:00:00 Outpatient SHONDA DAVILA [id number] Jagruti Ericksonybtim 2024-04-03 11:30:00 2024-04-03 11:30:00 Outpatient JAGRUTI JAGRUTI [id number] Jagruti [facility] 2024-04-03 10:45:00 2024-04-03 10:45:00 Outpatient JAGRUTI HAMPTON [id number] Jagruti [facility] 2024-03-12 00:00:00 2024-03-12 00:00:00 Outpatient SHONDA DAVILA JAGRUTI HAMPTON [id number] Jagruti [facility] 2024-02-26 08:00:00 2024-02-26 08:00:00 Outpatient SHONDA DAVILA JAGRUTI HAMPTON [id number] Jagruti [facility] 2024-02-23 11:15:00 2024-02-23 11:15:00 Outpatient HAROON RÍOS JAGRUTI HAMPTON [id number] [facility] 2024-02-18 00:00:00 2024-02-18 00:00:00 Outpatient MICKI DAVILATHIA JAGRUTI HAMPTON [id number] [facility] 2024-02-16 00:00:00 2024-02-16 00:00:00 Outpatient NAHID CHUNG JAGRUTI HAMPTON [id number] [facility] 2024-02-15 00:00:00 2024-02-15 00:00:00 Outpatient SHONDA DAVILA JAGRUTI HAMPTON [id number] [facility] 2024-02-13 00:00:00 2024-02-13 00:00:00 Outpatient MICKI DAVILATHIA JAGRUTI HAMPTON [id number] [facility] 2024-02-13 00:00:00 2024-02-13 00:00:00 Outpatient TONO PEÑA JAGRUTI HAMPTON [id number] [facility] 2024-02-13 00:00:00 2024-02-13 00:00:00 Outpatient SHONDA DAVILA JAGRUTI HAMPTON [id number] [facility] 2024-02-09 15:55:00 2024-02-09 15:55:00 Outpatient RAAD JAGRUTI HAMPTON [id number] [facility] 2024-02-09 15:00:00 2024-02-09 15:00:00 Outpatient SHONDA DAVILA [id number] [facility] 2024-02-09 00:00:00 2024-02-09 00:00:00 Outpatient SHONDA DAVILA [id number] [facility] 2024-02-07 08:00:00 2024-02-07 08:00:00 Outpatient NEGRITO CAVAZOS [id number] [facility] 2024-02-02 09:15:00 2024-02-02 09:15:00 Outpatient RAAD HAMPTON [id number] [facility] 2024-02-02 08:30:00 2024-02-02 08:30:00 Outpatient SHONDA DAVILA [id number] [facility] 2024-02-01 08:00:00 2024-02-01 08:00:00 Outpatient NEGRITO CAVAZOSSEY [id number] [facility] 2024-01-30 08:00:00 2024-01-30 08:00:00 Outpatient NEGRITO CAVAZOSSEY [id number] [facility] 2024-01-29 08:30:00 2024-01-29 08:30:00 Outpatient NEGRITO CAVAZOSSEY [id number] [facility] 2024-01-25 16:30:00 2024-01-25 16:30:00 Outpatient SHONDA DAVILA JAGRUTI [id number] [facility] Notes Date/Time Note Provider Source 2024-02-09 15:12:46 Chief Complaint Patient presents with Bite Has bites to her back [facility] 2024-02-02 08:09:45 Chief Complaint Patient presents with Follow-up Itching all over for [facility] 2024-01-25 16:24:49 Chief Complaint Patient presents with New Patient Establish Care Needs refills on medications Kasia Medina LVN T [facility]
[2024-07-16] MEDS ORDERED: LORazepam 2 MG/ML VIAL ONE ×2 (18:02→19:42)
[2024-07-16] MEDS ORDERED: NA CHLORIDE 0.9% 1,000 ML ONE (18:10)
[2024-07-16 18:32] LABS: Absolute Eosinophils 0.1 K/uL (0-0.5); Absolute Lymphocytes (CBC) 2.4 K/uL (0.7-4.9); Absolute Monocytes 0.5 K/uL (0.1-1.3); Absolute Neutrophil 3.4 K/uL (1.8-8.0); Basophils % 0.7 % (0-1.3); Eosinophils % 2.2 % (0-4.4); Hematocrit 40.1 % (36.0-45.0); Hemoglobin 13.8 g/dL (12.0-15.0); MCH 29.5 pg (27.0-35.0); MCHC 34.4 g/dL (32.0-36.0); MCV 85.7 fL (80-100); MPV 7.1 fL (7.6-11.3); Monocytes % 7.5 % (3.3-12.3); Neutrophils % 52.6 % (41.7-73.7); Nucleated Red Blood Cells % 0.7 % (0-0); Platelets 298 thou/uL (152-406); RBC Red Blood Cell Count 4.68 M/uL (3.86-4.86); Red Cell Distribution Width 13.3 % (12.1-15.2)
[2024-07-16 18:49] LABS: Albumin 3.5 g/dL (3.4-5.0); Albumin/Globulin Ratio 0.9 (1.1-1.8); Anion Gap 9.8 mEq/L (5.0-15.0); Bilirubin Total 0.3 mg/dL (0.2-1.0); Globulin 3.7 g/dL (2.3-3.5); Potassium 3.8 mEq/L (3.5-5.1); Protein, Total 7.2 g/dL (6.4-8.2)
--- NOTE | 2024-07-16 19:36 | ER ---
Nurse's Notes [facility] Name: Lexis Sterling Age: 44 yrs Sex: Female : 1980 Arrival Date: 07/16/2024 Time: 17:26 Bed 15 Private MD: Diagnosis: Anxiety disorder, unspecified Presentation: 07/16 17:39 Chief complaint: Patient states: I started to feel like I didn't want to wake up when I tm6 was sleeping, so I thought I was starting to get depressed. My doctor said it could be my blood sugar or my weight. I went to [facility] and they were going to send me to [place] [facility], but I didn't have anyone to watch my 16yo son, not until Monday. They will send me there on Monday. I do not want to harm myself or others. I did try to harm myself about 6 months ago. Today I am not suicidal. 17:39 Method Of Arrival: Ambulatory tm6 17:42 Coronavirus screen: Vaccine status: Patient reports receiving the 2nd dose of the covid tm6 vaccine. Client denies travel out of the [place] in the last 14 days. Ebola Screen: Patient negative for fever greater than or equal to 101.5 degrees Fahrenheit, and additional compatible Ebola Virus Disease symptoms Patient denies exposure to infectious person. Patient denies travel to an Ebola-affected area in the 21 days before illness onset. No symptoms or risks identified at this time. Initial Sepsis Screen: Does the patient meet any 2 criteria? HR > 90 bpm. Does the patient have a suspected source of infection? No. Patient's initial sepsis screen is negative. Risk Assessment: Do you want to hurt yourself or someone else? Patient reports no desire to harm self or others. Onset of symptoms was July 16, 2024. 17:42 Acuity: JD 3 tm6 Triage Assessment: 17:42 General: Appears in no apparent distress. Behavior is calm, cooperative. General: tm6 Behavior is anxious. Pain: Denies pain. EENT: No signs and/or symptoms were reported regarding the EENT system. Neuro: Level of Consciousness is awake, alert, obeys commands, Oriented to person, place, time, situation. Cardiovascular: Patient's skin is warm and dry. Respiratory: Airway is patent Respiratory effort is even, unlabored, Respiratory pattern is regular, symmetrical. GI: No signs and/or symptoms were reported involving the gastrointestinal system. Abdomen is flat, non-distended. : No signs and/or symptoms were reported regarding the genitourinary system. Derm: No signs and/or symptoms reported regarding the dermatologic system. Musculoskeletal: No signs and/or symptoms reported regarding the musculoskeletal system. Historical: - Allergies: 17:41 Doxycycline; tm6 17:41 Latex, Natural Rubber; tm6 - PMHx: 17:41 Anxiety; Asthma; Breast Augmentation; cervical CA; Migraines; thyroid issues; tm6 - PSHx: 17:41 Appendectomy; tubal ligation; tm6 - Immunization history:: Client reports receiving the 2nd dose of the Covid vaccine. - Infectious Disease History:: Denies. - Social history:: Smoking status: Patient denies any tobacco usage or history of. Patient uses alcohol, occasionally. Screenin:10 [facility] ED Fall Risk Assessment (Adult) History of falling in the last 3 months, bp including since admission No falls in past 3 months (0 pts) Confusion or Disorientation No (0 pts) Intoxicated or Sedated No (0 pts) Impaired Gait No (0 pts) Mobility Assist Device Used No (0 pt) Altered Elimination No (0 pt) Score/Fall Risk Level 0 - 2 = Low Risk Oriented to surroundings. Abuse screen: Denies threats or abuse. Denies injuries from another. Nutritional screening: No deficits noted. Tuberculosis screening: No symptoms or risk factors identified. Assessment: 18:00 General: Appears in no apparent distress. Behavior is cooperative, appropriate for age, bp anxious. 18:58 Reassessment: Patient appears in no apparent distress at this time. Patient and/or bp family updated on plan of care and expected duration. Pain level reassessed. Patient is alert, oriented x 3, equal unlabored respirations, skin warm/dry/pink. 19:53 Reassessment: Patient appears in no apparent distress at this time. Patient and/or jb4 family updated on plan of care and expected duration. Pain level reassessed. Patient is alert, oriented x 3, equal unlabored respirations, skin warm/dry/pink. Vital Signs: 17:42 BP 139 / 94; Pulse 100; Resp 20; Pulse Ox 99% on R/A; MAP 105 mmHg; Weight 51.26 kg; tm6 Height 4 ft. 9 in. ; Pain 0/10; 17:47 Temp 98.1(O); tm6 19:53 BP 128 / 86; Pulse 100; Resp 16; Pulse Ox 98% on R/A; jb4 17:42 Body Mass Index 24.45 (51.26 kg, 144.78 cm) tm6 17:42 Pain Scale: Adult tm6 ED Course: 17:30 Patient arrived in ED. mr 17:32 Catrina Silva, [facility] kb 17:32 Rogers Joyce MD is Attending Physician. kb 17:42 Arm band placed on right wrist. tm6 17:43 Triage completed. tm6 17:59 Suresh Nettles, SUSIE is Primary Nurse. bp 18:09 Initial lab(s) drawn, by me, sent to lab. Inserted saline lock: 22 gauge in right bp forearm, using aseptic technique. Blood collected. Flushed with 10 mL NS. 18:10 Patient has correct armband on for positive identification. bp 19:53 Provided Education on: discharge instructions.. jb4 19:53 No provider procedures requiring assistance completed. IV discontinued, intact, jb4 bleeding controlled, No redness/swelling at site. Pressure dressing applied. Administered Medications: 18:09 Drug: Ativan IVP 1 mg IVP once Route: IVP; Site: right forearm; bp 19:50 Follow up: Response: No adverse reaction; Marked relief of symptoms jb4 18:09 Drug: NS 0.9% IV 1000 ml IV at 1000 ml once; to be given as a bolus over 60 minutes bp Route: IV; Rate: 1000 ml; Site: right forearm; 19:55 Follow up: Response: No adverse reaction; IV Status: Completed infusion; IV Intake: jb4 1000ml 19:50 Drug: Ativan IVP 1 mg IVP once Route: IVP; Site: right forearm; jb4 19:50 Follow up: Response: Medication administered at discharge. jb4 Medication: 19:53 VIS not applicable for this client. jb4 Intake: 19:55 IV: 1000ml; Total: 1000ml. jb4 Outcome: 19:35 Discharge ordered by . kb 19:53 Discharged to home ambulatory, with family, jb4 19:53 Condition: stable 19:53 Discharge instructions given to patient, Instructed on discharge instructions, follow up and referral plans. Demonstrated understanding of instructions, follow-up care, 19:55 Patient left the ED. jb4 Signatures: Catrina Silva, JARET-C CONTACT ACID PLANT OPERATOR-Vonda Perez, Reg Reg mr VahidGallo, RN RN jb4 Suresh Nettles, RN RN bp Delia So RN RN tm6 Corrections: (The following items were deleted from the chart) 17:44 17:39 Chief complaint: Patient states: I started to feel like I didn't want to wake up tm6 when I was sleeping, so I thought I was starting to get depressed. My doctor said it could be my blood sugar or my weight. I went to [facility] and they were going to send me to [facility], but I didn't have anyone to watch my 16yo son, not until Monday. They will send me there on Monday. I do not want to harm myself or others. tm6
--- NOTE | 2024-07-16 19:36 | EDPHYS ---
Physician Documentation [facility] Name: Lexis Sterling Age: 44 yrs Sex: Female : 1980 Arrival Date: 07/16/2024 Time: 17:26 Bed 15 Private MD: ED Physician Rogers Joyce HPI: 07/16 20:05 This 44 yrs old Female presents to ER via Ambulatory with complaints of kb Anxiety, High Blood Sugar. 20:05 Pt is a 44 year old female who presents for high blood sugar and anxiety. States her kb anxiety and depression has been worse over the last week, making her feel like she doesn't want to get out of bed. States she is not suicidal. Went to [facility] due to increased anxiety and they got her an inpatient bed at [facility], but she didn't have anyone to keep her son so she didn't go. States her friend can watch her son starting on Monday so she is going to [place] at that time and has daily appts with [facility] until then to check in. States she has had high blood sugar readings over the last week as well and has never been diagnosed with diabetes. [facility] recommended pt come in for evaluation of blood sugar and so that she could get something for anxiety.. Historical: - Allergies: 17:41 Doxycycline; tm6 17:41 Latex, Natural Rubber; tm6 - PMHx: 17:41 Anxiety; Asthma; Breast Augmentation; cervical CA; Migraines; thyroid issues; tm6 - PSHx: 17:41 Appendectomy; tubal ligation; tm6 - Immunization history:: Client reports receiving the 2nd dose of the Covid vaccine. - Infectious Disease History:: Denies. - Social history:: Smoking status: Patient denies any tobacco usage or history of. Patient uses alcohol, occasionally. ROS: 20:03 Constitutional: As per HPI kb Exam: 20:03 Constitutional: This is a well developed, well nourished patient who is awake, alert, kb and in no acute distress. Head/Face: Normocephalic, atraumatic. ENT: Moist Mucous membranes Cardiovascular: Regular rate Respiratory: Respirations even and unlabored. No increased work of breathing. Talking in full sentences Abdomen/GI: Soft, non-tender. No distention Skin: Warm, dry with normal turgor. Normal color. MS/ Extremity: Pulses equal, no cyanosis. Neurovascular intact. Full, normal range of motion. Neuro: Awake and alert, GCS 15, oriented to person, place, time, and situation. 20:03 Psych: Behavior/mood is cooperative, anxious, Affect is animated, Oriented to person, place, time, Patient has no thoughts/intents to harm self or others. Vital Signs: 17:42 BP 139 / 94; Pulse 100; Resp 20; Pulse Ox 99% on R/A; MAP 105 mmHg; Weight 51.26 kg; tm6 Height 4 ft. 9 in. ; Pain 0/10; 17:47 Temp 98.1(O); tm6 19:53 BP 128 / 86; Pulse 100; Resp 16; Pulse Ox 98% on R/A; jb4 17:42 Body Mass Index 24.45 (51.26 kg, 144.78 cm) tm6 17:42 Pain Scale: Adult tm6 MDM: 17:32 Medical Screening Exam initiated kb 20:04 Differential diagnosis: acute stress reaction, hyperglycemia, anxiety. Data reviewed: vital signs, nurses notes. Counseling: I had a detailed discussion with the patient and/or guardian regarding the historical points, exam findings, and any diagnostic results supporting the discharge/admit diagnosis, lab results, the need for outpatient follow up, a family practitioner, to return to the emergency department if symptoms worsen or persist or if there are any questions or concerns that arise at home. 11 17:48 Order name: CBC with Diff; Complete Time: 18:39 kb 07/16 17:48 Order name: CMP; Complete Time: 18:50 kb 07/16 17:48 Order name: IV Start; Complete Time: 18:09 kb Administered Medications: 18:09 Drug: Ativan IVP 1 mg IVP once Route: IVP; Site: right forearm; bp 19:50 Follow up: Response: No adverse reaction; Marked relief of symptoms jb4 18:09 Drug: NS 0.9% IV 1000 ml IV at 1000 ml once; to be given as a bolus over 60 minutes bp Route: IV; Rate: 1000 ml; Site: right forearm; 19:55 Follow up: Response: No adverse reaction; IV Status: Completed infusion; IV Intake: jb4 1000ml 19:50 Drug: Ativan IVP 1 mg IVP once Route: IVP; Site: right forearm; jb4 19:50 Follow up: Response: Medication administered at discharge. jb4 Disposition Summary: 07/16/24 19:35 Discharge Ordered Notes: Location: Home kb Condition: Stable kb Diagnosis - Anxiety disorder, unspecified kb Followup: kb - With: Emergency Department - When: As needed - Reason: Worsening of condition Followup: kb - With: Private Physician - When: 2 - 3 days - Reason: Recheck today's complaints, Continuance of care, Re-evaluation by your physician Discharge Instructions: - Discharge Summary Sheet kb - Panic Attack, [id number] kb - Managing Anxiety, Adult kb Forms: - Medication Reconciliation Form kb - Antibiotic Education kb - Prescription Opioid Use kb - Patient Portal Instructions kb - Leadership Thank You Letter kb - Work release form jb4 Signatures: Dispatcher [employer] EDCatrina Boles, ERCO MACHINE OPERATOR-C ERCO MACHINE OPERATOR-Gallo Hernandes RN RN jb4 Suresh Nettles RN RN bp Delia So RN RN tm6
[2024-07-16 20:21] VITALS: TEMP 98.1
[2024-07-16 20:22] VITALS: BP 128/86; O2SAT 98
== END 2024-07-16 19:55 | disposition home or self-care (01) ==
LOC: ER 17:26
DX: F41.9 Anxiety disorder, unspecified (principal)
CPT/HCPCS: 36415; 80053; 85025; J7030

== ENCOUNTER 2024-07-21 12:56 | Emergency (ER) | payer SELFPAY ==
--- OUTSIDE RECORDS SUMMARY | 2024-07-21 12:58 | XMS REPORT | Continuity of Care Document ---
Author Name Unknown Address [address] [facility] [address] th[address] Address [address] [facility] [address] [place] [address] Care Team Providers Care Ammonia Distiller Name Role Phone SHONDA DAVILA Attending Clinician Unavailab HAROON De León Attending Clinician Unavailable NAHID CHUNG Attending Clinician Unava TONO Oreilly Attending Clinician Unavailable LAB90 Attending Clinician Unavailable MACY CORNING Attending Clinician Unavailabl e Payers Payer Name Policy Type Policy Number Effective Date Expirati on Date Source AET[employer] MP [employer] 5 [employer] 94 ON 9 [id number] 2024 00:00:00 [facility] F[facility] 9 [id number] 2023 00:00:00 Problems Condition Name Condition Details [...] 02-01 00:00: 00 02-08 00:00 :00 No [id number] 1{appli cation} Apply 1 Applicatio n topically 2 times daily. Jagruti giron Famotidine (PEPCID) 20 MG oral tablet 02-01 00:00: 00 02-08 00:00 :00 No [id number] 20mg Take 1 tablet (20 mg total) by mouth 2 times daily. Jagruti giron Amitriptyli ne HCl 25 MG oral Tablet 01-24 00:00: 00 Yes [id number] 25mg Take 1 tablet (25 mg total) by mouth at bedtime. Jagruti Seybold - Externa l busPIRone HCl 5 MG oral Tablet 01-24 00:00: 00 Yes [id number] 5mg Take 1 tablet (5 mg total) by mouth 3 times daily. Jagruti Meletim - Externa l Trazodone HCl 50 MG oral Tablet 01-24 00:00: 00 Yes [id number] 25mg Take 0.5 tablets (25 mg total) [...] End Date/Time Encounter Type Admission Type Attending [facility] Care Department Encounter ID Source 2024-06-04 09:15:00 2024-06-04 09:15:00 Outpatient JAGRUTI HAMPTON [id number] Jagruti Ericksonybtim 2024-06-04 08:30:00 2024-06-04 08:30:00 Outpatient JAGRUTI HAMPTON [id number] Jagruti Kaur 2024-05-08 00:00:00 2024-05-08 00:00:00 Outpatient SHONDA DAVILA [id number] Jagruti Ericksony[facility]im 2024-04-05 00:00:00 2024-04-05 00:00:00 Outpatient SHONDA DAVILA [id number] Jagruti Ericksonybtim 2024-04-03 11:30:00 2024-04-03 11:30:00 Outpatient JAGRUTI JAGRUTI [id number] Jagruti [facility] 2024-04-03 10:45:00 2024-04-03 10:45:00 Outpatient JAGRUTI HAMPTON [id number] Jagruti [facility] 2024-03-12 00:00:00 2024-03-12 00:00:00 Outpatient SHONDA DAVILA JAGRUTI HAMPTON [id number] Jagruti [facility] 2024-02-26 08:00:00 2024-02-26 08:00:00 Outpatient SHONDA DAVILA JAGRUTI HAMPTON [id number] Jagruti [facility] 2024-02-23 11:15:00 2024-02-23 11:15:00 Outpatient HAROON RÍOS JAGRUTI HAMPTON [id number] [facility] 2024-02-18 00:00:00 2024-02-18 00:00:00 Outpatient MICKI DAVILATHIA JAGRUTI HAMPTON [id number] [facility] 2024-02-16 00:00:00 2024-02-16 00:00:00 Outpatient NAHID CHUNG JAGRUTI HAMPTON [id number] [facility] 2024-02-15 00:00:00 2024-02-15 00:00:00 Outpatient SHONDA DAVILA JAGRUTI HAMPTON [id number] [facility] 2024-02-13 00:00:00 2024-02-13 00:00:00 Outpatient MICKI DAVILATHIA JAGRUTI HAMPTON [id number] [facility] 2024-02-13 00:00:00 2024-02-13 00:00:00 Outpatient TONO PEÑA JAGRUTI HAMPTON [id number] [facility] 2024-02-13 00:00:00 2024-02-13 00:00:00 Outpatient SHONDA DAVILA JAGRUTI HAMPTON [id number] [facility] 2024-02-09 15:55:00 2024-02-09 15:55:00 Outpatient RAAD JAGRUTI HAMPTON [id number] [facility] 2024-02-09 15:00:00 2024-02-09 15:00:00 Outpatient SHONDA DAVILA [id number] [facility] 2024-02-09 00:00:00 2024-02-09 00:00:00 Outpatient SHONDA DAVILA [id number] [facility] 2024-02-07 08:00:00 2024-02-07 08:00:00 Outpatient NEGRITO CAVAZOS [id number] [facility] 2024-02-02 09:15:00 2024-02-02 09:15:00 Outpatient RAAD HAMPTON [id number] [facility] 2024-02-02 08:30:00 2024-02-02 08:30:00 Outpatient SHONDA DAVILA [id number] [facility] 2024-02-01 08:00:00 2024-02-01 08:00:00 Outpatient NEGRITO CAVAZOSSEY [id number] [facility] 2024-01-30 08:00:00 2024-01-30 08:00:00 Outpatient NEGRITO CAVAZOSSEY [id number] [facility] 2024-01-29 08:30:00 2024-01-29 08:30:00 Outpatient NEGRITO CAVAZOSSEY [id number] [facility] 2024-01-25 16:30:00 2024-01-25 16:30:00 Outpatient SHONDA DAVILA JAGRUTI [id number] [facility] Notes Date/Time Note Provider Source 2024-02-09 15:12:46 Chief Complaint Patient presents with Bite Has bites to her back [facility] 2024-02-02 08:09:45 Chief Complaint Patient presents with Follow-up Itching all over for [facility] Medina [facility] 2024-01-25 16:24:49 Chief Complaint Patient presents with New Patient Establish Care Needs refills on medications Kasia Medina LVN T [facility]
[2024-07-21] MEDS ORDERED: LORazepam 2 MG/ML VIAL ONE (14:41)
[2024-07-21 14:45] LABS: Absolute Eosinophils 0.1 K/uL (0-0.5); Absolute Lymphocytes (CBC) 1.8 K/uL (0.7-4.9); Absolute Monocytes 0.4 K/uL (0.1-1.3); Basophils % 0.7 % (0-1.3); Hemoglobin 13.4 g/dL (12.0-15.0); Lymphocytes % 28.5 % (15.3-44.8); MCH 29.4 pg (27.0-35.0); MCHC 33.6 g/dL (32.0-36.0); MCV 87.3 fL (80-100); MPV 7.3 fL (7.6-11.3); Monocytes % 6.1 % (3.3-12.3); Neutrophils % 63.7 % (41.7-73.7); Platelets 277 thou/uL (152-406); RBC Red Blood Cell Count 4.58 M/uL (3.86-4.86); Red Cell Distribution Width 13.5 % (12.1-15.2)
[2024-07-21 14:46] LABS: Sqamous Epithelial <5 /HPF (None Seen); Urine Bacteria <20 /HPF (<20); Urine Bilirubin NEGATIVE (Negative); Urine Blood Negative (Negative); Urine Clarity Turbid (Clear); Urine Color Colorless (Yellow); Urine Culture Reflex Order NOT NEEDED; Urine Glucose NEGATIVE (Negative); Urine Ketones NEGATIVE (Negative); Urine Microscopic Reflex YN ORDER UMIC; Urine Nitrite NEGATIVE (Negative); Urine Protein NEGATIVE (Negative); Urine RBC <5 /HPF (None Seen); Urine Urobilinogen Normal (Normal); Urine WBC None Seen /HPF (<5); Urine pH 6.5 (5.0-7.0)
[2024-07-21 14:50] LABS: PT Prothrombin Time 10.6 SECONDS (9.4-12.5); PTT, Activated Partial Thromb 28.6 SECONDS (24.3-36.9); Protime INR 0.94
[2024-07-21 14:53] LABS: Barbiturates NEGATIVE (NEGATIVE); Benzodiazepines NEGATIVE (NEGATIVE); Cocaine NEGATIVE (NEGATIVE); METHAMPHETAM NEGATIVE (NEGATIVE); Methadone NEGATIVE (NEGATIVE); Opiates NEGATIVE (NEGATIVE); Phencyclidine NEGATIVE (NEGATIVE); THC Cannibis NEGATIVE (NEGATIVE)
[2024-07-21 15:01] LABS: ALT/SGPT 33 U/L (13-56); AST/SGOT 19 U/L (15-37); Albumin 3.5 g/dL (3.4-5.0); Albumin/Globulin Ratio 0.9 (1.1-1.8); Alkaline Phosphatase 113 U/L (45-117); BUN Blood Urea Nitrogen 13 mg/dL (7-18); Bicarbonate 24 mEq/L (21-32); Bilirubin Direct < 0.2 mg/dL (0-0.2); Bilirubin Total < 0.2 mg/dL (0.2-1.0); Globulin 3.7 g/dL (2.3-3.5); Glomerular Filtration Rate 105 ml/min (=/>90); Glucose Level 124 mg/dL (74-106); Protein, Total 7.2 g/dL (6.4-8.2); Sodium Level 140 mEq/L (136-145)
--- NOTE | 2024-07-21 15:23 | ER ---
Nurse's Notes [facility] Name: Lexis Sterling Age: 44 yrs Sex: Female : 1980 Arrival Date: 07/21/2024 Time: 12:56 Bed 20 Private MD: Diagnosis: Anxiety disorder, unspecified Presentation: 07/21 12:56 Chief complaint: Patient states: Increased anxiety, pt reports she contacted [facility] aa and was instructed to come in to ER to be transferred to psych facility on Monday. 12:56 Coronavirus screen: At this time, the client does not indicate any symptoms associated aa5 with coronavirus-19. Ebola Screen: Patient denies travel to an Ebola-affected area in the 21 days before illness onset. Initial Sepsis Screen: Does the patient meet any 2 criteria? HR > 90 bpm. Does the patient have a suspected source of infection? No. Patient's initial sepsis screen is negative. Risk Assessment: Do you want to hurt yourself or someone else? Patient reports no desire to harm self or others. Onset of symptoms was July 21, 2024. 12:56 Acuity: JD 3 aa5 12:56 Method Of Arrival: Ambulatory aa5 Historical: - Allergies: 12:56 Doxycycline; aa5 12:56 Latex; aa5 - Home Meds: 12:56 amitriptyline 25 mg Oral tablet [Active]; trazodone 50 mg Oral tablet 1 tab [Active]; aa5 buspirone 15 mg Oral tablet [Active]; - PMHx: 12:56 Anxiety; Breast Augmentation; Asthma; cervical CA; Migraines; thyroid issues; aa5 - PSHx: 12:56 Appendectomy; tubal ligation; aa5 - Immunization history:: Adult Immunizations up to date. - Infectious Disease History:: Denies. - Social history:: Smoking status: Patient denies any tobacco usage or history of. Patient uses alcohol, occasionally. Patient/guardian denies using street drugs. Screenin:57 [facility] ED Fall Risk Assessment (Adult) History of falling in the last 3 months, kc6 including since admission No falls in past 3 months (0 pts) Confusion or Disorientation No (0 pts) Intoxicated or Sedated No (0 pts) Impaired Gait No (0 pts) Mobility Assist Device Used No (0 pt) Altered Elimination No (0 pt) Score/Fall Risk Level 0 - 2 = Low Risk Oriented to surroundings. Abuse screen: Denies threats or abuse. Denies injuries from another. Nutritional screening: No deficits noted. Tuberculosis screening: No symptoms or risk factors identified. Assessment: 13:00 General: Appears in no apparent distress. comfortable, well groomed, well developed, kc6 Behavior is cooperative, appropriate for age, anxious. Pain: Denies pain. Neuro: Level of Consciousness is awake, alert, obeys commands, Oriented to person, place, time, situation, Appropriate for age. Cardiovascular: Capillary refill < 3 seconds. Respiratory: Airway is patent Trachea midline Respiratory effort is even, unlabored, Respiratory pattern is regular, symmetrical. GI: No signs and/or symptoms were reported involving the gastrointestinal system. : No signs and/or symptoms were reported regarding the genitourinary system. EENT: No signs and/or symptoms were reported regarding the EENT system. Derm: No signs and/or symptoms reported regarding the dermatologic system. Skin is intact, is healthy with good turgor, Skin is pink, warm \\T\\ dry. Musculoskeletal: No signs and/or symptoms reported regarding the musculoskeletal system. Circulation, motion, and sensation intact. Capillary refill < 3 seconds, Range of motion: intact in all extremities. 14:00 Reassessment: Patient appears in no apparent distress at this time. No changes from kc6 previously documented assessment. Patient and/or family updated on plan of care and expected duration. Pain level reassessed. Patient is alert, oriented x 3, equal unlabored respirations, skin warm/dry/pink. 14:56 Reassessment: Patient appears in no apparent distress at this time. No changes from kc6 previously documented assessment. Patient and/or family updated on plan of care and expected duration. Pain level reassessed. Patient is alert, oriented x 3, equal unlabored respirations, skin warm/dry/pink. Psych: 13:07 [place] Suicide Severity Screening: In the past month, have you wished you were kc6 or wished you could go to sleep and not wake up? Patient responds "No." "In the past month, have you actually had any thoughts of killing yourself?" Patient responds "no." "In your lifetime, have you ever done anything, started to do anything, or prepared to do anything to end your life?" Patient responds "no.". Subjective: Delusions are denied, Hallucinations are denied. Objective: Patient is cooperative, Speech is normal, Affect is appropriate. Interventions: Removed personal items and placed in bag. Patient placed in hospital gown. Urine collected and sent for urine drug test. Safety Checks: Personal items have been removed. Door is closed to patient's room. No visitors are present at this time. Pt denies substance abuse. Commitment: Patient will be a voluntary commitment. Vital Signs: 12:56 BP 158 / 85; Pulse 102; Resp 16 S; Temp 97.5(TE); Pulse Ox 96% on R/A; Weight 51.71 kg aa5 (R); Height 4 ft. 9 in. (R); 12:56 Body Mass Index 24.67 (51.71 kg, 144.78 cm) aa5 ED Course: 12:56 Arm band placed on. aa5 12:59 Patient arrived in ED. mg5 13:00 Catrina Silva FNP-C is [facility]. kb 13:00 Adolfo Greer MD is Attending Physician. kb 14:00 Triage completed. aa5 14:07 Keila Romero, SUSIE is Primary Nurse. kc6 14:57 Patient has correct armband on for positive identification. Bed in low position. Side kc6 rails up X 1. Valuables Left with patient. Door closed. Noise minimized. Lights dimmed. Warm blanket given. Pillow given. 14:57 Missed attempt(s): 20 gauge in right antecubital area. Inserted saline lock: 20 gauge kc6 in left antecubital area, using aseptic technique. Blood collected. Flushed with 10 mL NS. Patient maintains SpO2 saturation greater than 95% on room air. 15:51 No provider procedures requiring assistance completed. IV discontinued, intact, kc6 bleeding controlled, No redness/swelling at site. Pressure dressing applied. Administered Medications: 14:52 Drug: Ativan IVP 2 mg IVP once Route: IVP; Site: left antecubital; kc6 Medication: 15:51 VIS not applicable for this client. kc6 Outcome: 15:22 Discharge ordered by . kb 15:51 Discharged to home ambulatory, with family, kc6 15:51 Condition: good 15:51 Discharge instructions given to patient, Instructed on discharge instructions, follow up and referral plans. Demonstrated understanding of instructions, follow-up care, 15:51 Patient left the ED. kc6 Signatures: Catrina Silva, [place] LIQUOR BRIDGE OPERATOR-Marcela Mueller, RN RN aa5 Keila Romero RN RN kc6 Betsy Leigh 5
--- NOTE | 2024-07-21 15:23 | EDPHYS ---
Physician Documentation [facility] Name: Lexis Sterling Age: 44 yrs Sex: Female : 1980 Arrival Date: 07/21/2024 Time: 12:56 Bed 20 Private MD: ED Physician Adolfo Greer HPI: 07/21 13:45 This 44 yrs old Female presents to ER via Unassigned with complaints of kb Anxiety. 13:45 Pt is a 44 year old female who presents for anxiety. states she is supposed to be kb admitted to [facility] tomorrow, but doesn't think she can last that long. States she hasn't been able to sleep and is afraid to be alone. States she does not want to harm herself but afraid of going home. States she needs to go to the hospital from here. . Historical: - Allergies: 12:56 Doxycycline; aa5 12:56 Latex; aa5 - Home Meds: 12:56 amitriptyline 25 mg Oral tablet [Active]; trazodone 50 mg Oral tablet 1 tab [Active]; aa5 buspirone 15 mg Oral tablet [Active]; - PMHx: 12:56 Anxiety; Breast Augmentation; Asthma; cervical CA; Migraines; thyroid issues; aa5 - PSHx: 12:56 Appendectomy; tubal ligation; aa5 - Immunization history:: Adult Immunizations up to date. - Infectious Disease History:: Denies. - Social history:: Smoking status: Patient denies any tobacco usage or history of. Patient uses alcohol, occasionally. Patient/guardian denies using street drugs. ROS: 13:45 Constitutional: As per HPI kb Exam: 13:45 Constitutional: This is a well developed, well nourished patient who is awake, alert, kb and in no acute distress. Head/Face: Normocephalic, atraumatic. ENT: Moist Mucous membranes Cardiovascular: Regular rate Respiratory: Respirations even and unlabored. No increased work of breathing. Talking in full sentences Abdomen/GI: Soft, non-tender. No distention Skin: Warm, dry with normal turgor. Normal color. MS/ Extremity: Pulses equal, no cyanosis. Neurovascular intact. Full, normal range of motion. Neuro: Awake and alert, GCS 15, oriented to person, place, time, and situation. 13:45 Psych: Behavior/mood is cooperative, anxious, Affect is animated, Oriented to person, place, time, Patient has no thoughts/intents to harm self or others. 14:55 ECG was reviewed by the Attending Physician. Vital Signs: 12:56 BP 158 / 85; Pulse 102; Resp 16 S; Temp 97.5(TE); Pulse Ox 96% on R/A; Weight 51.71 kg aa5 (R); Height 4 ft. 9 in. (R); 12:56 Body Mass Index 24.67 (51.71 kg, 144.78 cm) aa5 MDM: 13:01 Medical Screening Exam initiated kb 13:45 Data reviewed: vital signs, nurses notes. 13:47 Differential diagnosis: acute psychotic break, depression, acute stress reaction. kb 14:55 ED course: Pt states she is not suicidal and does not want to hurt herself. States she kb was afraid to go home because she didn't want to have anxiety that she has while there. States her left her 5 months ago so she still has anxiety about him not being there. . 15:08 Counseling: I had a detailed discussion with the patient and/or guardian regarding the kb historical points, exam findings, and any diagnostic results supporting the discharge/admit diagnosis, lab results, the need for outpatient follow up, a family practitioner, to return to the emergency department if symptoms worsen or persist or if there are any questions or concerns that arise at home. ED course: Pt states she will call [facility] first thing in the morning and go to [facility] as planned tomorrow. . 07/21 13:04 Order name: Acetaminophen; Complete Time: 15:03 kb 07/21 13:04 Order name: Basic Metabolic Panel; Complete Time: 15:03 kb 07/21 13:04 Order name: CBC with Diff; Complete Time: 14:54 kb 07/21 13:04 Order name: ETOH Level; Complete Time: 15:03 kb 07/21 13:04 Order name: Hepatic Function; Complete Time: 15:03 kb 07/21 13:04 Order name: PT-INR; Complete Time: 14:54 kb 07/21 13:04 Order name: Test, Urine; Complete Time: 14:46 kb 07/21 13:04 Order name: Ptt, Activated; Complete Time: 14:54 kb 07/21 13:04 Order name: Salicylate; Complete Time: 15:09 kb 07/21 13:04 Order name: Urinalysis w/ reflexes; Complete Time: 14:54 kb 07/21 13:04 Order name: Urine Drug Screen; Complete Time: 14:54 kb 07/21 13:04 Order name: EKG; Complete Time: 13:04 kb 07/21 13:04 Order name: EKG - Nurse/Tech; Complete Time: 14:52 kb 07/21 13:04 Order name: IV Saline Lock; Complete Time: 14:52 kb 07/21 13:04 Order name: Labs collected and sent; Complete Time: 14:52 kb 07/21 13:04 Order name: Suicide Screening ([place]); Complete Time: 14:52 kb EC:55 Rate is 101 beats/min. Rhythm is regular. QRS [place] is Normal. [place] interval is normal at kb 158 msec. QRS interval is normal at 74 msec. QT interval is normal at 433 msec. Administered Medications: 14:52 Drug: Ativan IVP 2 mg IVP once Route: IVP; Site: left antecubital; kc6 Disposition Summary: 07/21/24 15:22 Discharge Ordered Notes: Location: Home kb Condition: Stable kb Diagnosis - Anxiety disorder, unspecified kb Followup: kb - With: Emergency Department - When: As needed - Reason: Worsening of condition Followup: kb - With: Private Physician - When: 2 - 3 days - Reason: Recheck today's complaints, Continuance of care, Re-evaluation by your physician Discharge Instructions: - Discharge Summary Sheet kb - Panic Attack, [id number]-Btej kb - Managing Anxiety, Adult kb Forms: - Work release form kb - Medication Reconciliation Form kb - Antibiotic Education kb - Prescription Opioid Use kb - Patient Portal Instructions kb - Leadership Thank You Letter kb Signatures: Dispatcher [employer] Catrina Reina FNP-C FNP-Marcela Mueller, RN RN aa5 Keila Romero RN RN kc6
[2024-07-21 15:59] VITALS: BP 158/85; TEMP 97.5; O2SAT 96
--- NOTE | 2024-07-22 12:04 | EKG ---
Test Date: 2024-07-21 Test Time: 14:47:32 First Aid Officer: JUWAN MEASUREMENT RESULTS: Intervals: Rate: 101 OH: 158 QRSD: 74 QT: 334 QTc: 433 [place]: P: 65 OH: 158 QRS: 60 T: 82 INTERPRETIVE STATEMENTS: Sinus tachycardia Nonspecific ST abnormality Abnormal ECG Compared to ECG 04/13/2024 18:17:50 ST (T wave) deviation now present Electronically Signed On 07-22-24 12:03:43 FIXED INCOME TRADING VICE PRESIDENT by Chris Hamilton
== END 2024-07-21 15:51 | disposition home or self-care (01) ==
LOC: ER 12:56
DX: F41.9 Anxiety disorder, unspecified (principal); Z98.82 Breast implant status
CPT/HCPCS: 36415; 80048; 80076; 80143; 80179; 80307; 81001; 81025; 82077; 85025; 85610; 85730; 93005; 96374; 99285

== ENCOUNTER 2024-10-09 02:55 | Emergency (ER) | payer SELFPAY ==
[2024-10-09] MEDS ORDERED: ALPRAZOLAM 0.5 MG TABLET ONE (03:34)
[2024-10-09] MEDS ORDERED: LORazepam 2 MG/ML VIAL ONE (04:04)
--- OUTSIDE RECORDS SUMMARY | 2024-10-09 04:25 | XMS REPORT | Continuity of Care Document ---
Author Name Unknown Address [address] [facility] [address] th[address] Address [address] [facility] 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 Jagruti giron Famotidine (PEPCID) 20 MG oral tablet 02-01 00:00: 00 02-08 00:00 :00 No [id number] 20mg Take 1 tablet (20 mg total) by mouth 2 times daily. Jagruti giron Amitriptyli ne HCl 25 MG oral Tablet 01-24 00:00: 00 Yes [id number] 25mg Take 1 tablet (25 mg total) by mouth at bedtime. Jagruti Seybold - Externa l busPIRone HCl 5 MG oral Tablet 01-24 00:00: 00 Yes [id number] 5mg Take 1 tablet (5 mg total) by mouth 3 times daily. Jagruti Meletim - Externa l Trazodone HCl 50 MG oral Tablet 01-24 00:00: 00 Yes [id number] 25mg Take 0.5 tablets (25 mg total) [...] End Date/Time Encounter Type Admission Type Attending [facility] Care Department Encounter ID Source 2024-06-04 09:15:00 2024-06-04 09:15:00 Outpatient JAGRUTI HAMPTON [id number] Jagruti Ericksonybtim 2024-06-04 08:30:00 2024-06-04 08:30:00 Outpatient JAGRUTI HAMPTON [id number] Jagruti Kaur 2024-05-08 00:00:00 2024-05-08 00:00:00 Outpatient SHONDA DAVILA [id number] Jagruti Ericksony[facility]im 2024-04-05 00:00:00 2024-04-05 00:00:00 Outpatient SHONDA DAVILA [id number] Jagruti Eric[facility] 2024-04-03 11:30:00 2024-04-03 11:30:00 Outpatient JAGRUTI JAGRUTI [id number] Jagruti [facility] 2024-04-03 10:45:00 2024-04-03 10:45:00 Outpatient JAGRUTI HAMPTON [id number] [facility]ruti [facility] 2024-03-12 00:00:00 2024-03-12 00:00:00 Outpatient SHONDA DAVILA JAGRUTI HAMPTON [id number] [facility] 2024-02-26 08:00:00 2024-02-26 08:00:00 Outpatient SHONDA DAVILA JAGRUTI HAMPTON [id number] [facility]urti [facility] 2024-02-23 11:15:00 2024-02-23 11:15:00 Outpatient HAROON RÍOS JAGRUTI HAMPTON [id number] [facility] 2024-02-18 00:00:00 2024-02-18 00:00:00 Outpatient MICKI DAVILATHIA JAGRUTI HAMPTON [id number] [facility] 2024-02-16 00:00:00 2024-02-16 00:00:00 Outpatient NAHID CHUNG JAGRUTI HAMPTON [id number] [facility] 2024-02-15 00:00:00 2024-02-15 00:00:00 Outpatient SHONDA DAVILA JAGRUTI HAMPTON [id number] [facility] 2024-02-13 00:00:00 2024-02-13 00:00:00 Outpatient MICKI DAVILATHIA JAGRUTI HAMPTON [id number] [facility] 2024-02-13 00:00:00 2024-02-13 00:00:00 Outpatient TOON PEÑA JAGRUTI HAMPTON [id number] [facility] 2024-02-13 00:00:00 2024-02-13 00:00:00 Outpatient SHONDA DAVILA JAGRUTI HAMPTON [id number] [facility] 2024-02-09 15:55:00 2024-02-09 15:55:00 Outpatient RAAD JAGRUTI HAMPTON [id number] [facility] 2024-02-09 15:00:00 2024-02-09 15:00:00 Outpatient LOLASHONDA [id number] [facility] 2024-02-09 00:00:00 2024-02-09 00:00:00 Outpatient SHONDA DAVILA JAGRUTI [id number] [facility] 2024-02-07 08:00:00 2024-02-07 08:00:00 Outpatient NEGRITO CAVAZOS JAGRUTI HAMPTON [id number] [facility] 2024-02-02 09:15:00 2024-02-02 09:15:00 Outpatient RAAD JAGRUTI HAMPTON [id number] [facility] 2024-02-02 08:30:00 2024-02-02 08:30:00 Outpatient SHONDA DAVILA JAGRUTI HAMPTON [id number] [facility] 2024-02-01 08:00:00 2024-02-01 08:00:00 Outpatient NEGRITO CAVAZOS JAGRUTI HAMPTON [id number] [facility] 2024-01-30 08:00:00 2024-01-30 08:00:00 Outpatient NEGRITO CAVAZOS JAGRUTI HAMPTON [id number] [facility] 2024-01-29 08:30:00 2024-01-29 08:30:00 Outpatient MACY NEGRITO HAMPTON [id number] [facility] 2024-01-25 16:30:00 2024-01-25 16:30:00 Outpatient LOLA SHONDA HAMPTON [id number] [facility]
--- NOTE | 2024-10-09 04:29 | ER ---
Nurse's Notes [facility] Name: Lexis Sterling Age: 44 yrs Sex: Female : 1980 Arrival Date: 10/09/2024 Time: 02:55 Bed 12 Private MD: Diagnosis: Anxiety, panic attack Presentation: 10/09 03:13 Chief complaint: Patient states: Bad anxiety attack. Coronavirus screen: Client denies vc1 travel out of the [place] in the last 14 days. At this time, the client does not indicate any symptoms associated with coronavirus-19. Ebola Screen: Patient negative for fever greater than or equal to 101.5 degrees Fahrenheit, and additional compatible Ebola Virus Disease symptoms Patient denies exposure to infectious person. Patient denies travel to an Ebola-affected area in the 21 days before illness onset. No symptoms or risks identified at this time. Initial Sepsis Screen: Does the patient meet any 2 criteria? No. Patient's initial sepsis screen is negative. Does the patient have a suspected source of infection? No. Patient's initial sepsis screen is negative. Risk Assessment: Do you want to hurt yourself or someone else? Patient reports no desire to harm self or others. Onset of symptoms was October 09, 2024 at 00:00. Care prior to arrival: Medication(s) given: buspirone 15mg , seroquel 10 mg. 03:13 Method Of Arrival: Ambulatory vc1 03:13 Acuity: JD 4 vc1 Triage Assessment: 04:32 General: Appears in no apparent distress. slender, Behavior is cooperative, anxious, vc1 restless. Pain: Denies pain. EENT: No deficits noted. No signs and/or symptoms were reported regarding the EENT system. Neuro: Level of Consciousness is awake, alert, obeys commands, Oriented to person, place, time, situation, Appropriate for age. Cardiovascular: Heart tones S1 S2 present Capillary refill < 3 seconds. Respiratory: Airway is patent Respiratory effort is even, unlabored, Respiratory pattern is regular, symmetrical, Breath sounds are clear bilaterally. GI: Abdomen is flat. : No deficits noted. No signs and/or symptoms were reported regarding the genitourinary system. Derm: Skin is intact, is healthy with good turgor, Skin is dry, Skin is pink, warm \T\ dry. Skin temperature is warm. Musculoskeletal: Circulation, motion, and sensation intact. Range of motion: intact in all extremities. 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 - Infectious Disease History:: Denies. - Social history:: Smoking status: Patient denies any tobacco usage or history of. Screenin:16 [facility] ED Fall Risk Assessment (Adult) History of falling in the last 3 months, vc1 including since admission No falls in past 3 months (0 pts) Confusion or Disorientation No (0 pts) Intoxicated or Sedated No (0 pts) Impaired Gait No (0 pts) Mobility Assist Device Used No (0 pt) Altered Elimination No (0 pt) Score/Fall Risk Level 0 - 2 = Low Risk Oriented to surroundings, Maintained a safe environment, Educated pt \T\ family on fall prevention, incl call for assistance when getting out of bed. Abuse screen: Denies threats or abuse. Nutritional screening: No deficits noted. Tuberculosis screening: No symptoms or risk factors identified. Vital Signs: 03:13 Weight 50.8 kg; Height 4 ft. 9 in. ; vc1 03:20 BP 114 / 78; Pulse 104; Resp 20; Temp 97.7; Pulse Ox 99% ; vc1 04:32 BP 116 / 72; Pulse 111; Resp 18; Pulse Ox 99% ; vc1 03:13 Body Mass Index 24.24 (50.80 kg, 144.78 cm) vc1 ED Course: 02:55 Patient arrived in ED. [id number] 03:15 Triage completed. vc1 03:16 Rogers Joyce MD is Attending Physician. sp3 03:16 Arm band placed on right wrist. vc1 03:16 Patient has correct armband on for positive identification. placed in bed, lights out. vc1 Provided Education on: treating anxiety. 03:35 Calcote, Rachana, RN is Primary Nurse. vc1 04:34 No provider procedures requiring assistance completed. Patient did not have IV access vc1 during this emergency room visit. Administered Medications: 03:35 Drug: ALPRAZolam PO Tablet 0.5 mg PO once Route: PO; vc1 04:32 Follow up: Response: No adverse reaction; No change in condition vc1 04:10 Drug: LORazepam IM 2 mg IM once Route: IM; Site: right ventrogluteal; vc1 04:32 Follow up: Response: No adverse reaction vc1 Medication: 03:16 VIS not applicable for this client. vc1 Outcome: 04:03 Discharge ordered by . horacio 04:35 Discharged to home ambulatory, vc1 04:35 Condition: good 04:35 Discharge instructions given to patient, Instructed on discharge instructions, follow up and referral plans. Demonstrated understanding of instructions, follow-up care, 04:37 Patient left the ED. vc1 Signatures: Rogers Joyce MD MD sp3 Shanon Sampson [email or web address] Rachana Bhat RN RN vc1
--- NOTE | 2024-10-09 04:29 | EDPHYS ---
Physician Documentation [facility] Name: Lexis Sterling Age: 44 yrs Sex: Female : 1980 Arrival Date: 10/09/2024 Time: 02:55 Bed 12 Private MD: ED Physician Rogers Joyce HPI: 10/09 03:57 This 44 yrs old Female presents to ER via Ambulatory with complaints of sp3 Anxiety. 03:57 44-year-old female with history of anxiety and other PMH above now presents for sp3 recurrent anxiety episode at awoke her from sleep at 11:45 PM approximately 4 hours ago. Patient is on neck regular dose of BuSpar and states that she has "been doing better". She has a follow-up appointment that she made for October 25 with her psychiatric provider during which time she states she will discuss adjusting dosage or adding second agent for her anxiety. She currently denies any SI, HI, psychosis, headache, neck pain, chest pain, shortness of breath, abdominal pain, vomiting, diarrhea, rash, drug use, or any other signs or symptoms on ROS at this time.. 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 - Infectious Disease History:: Denies. - Social history:: Smoking status: Patient denies any tobacco usage or history of. ROS: 03:58 Constitutional: Negative for fever, chills, and weight loss, Eyes: Negative for injury, sp3 pain, redness, and discharge, ENT: Negative for injury, pain, and discharge, Neck: Negative for injury, pain, and swelling, Cardiovascular: Negative for chest pain, palpitations, and edema, Respiratory: Negative for shortness of breath, cough, wheezing, and pleuritic chest pain, Abdomen/GI: Negative for abdominal pain, nausea, vomiting, diarrhea, and constipation, Back: Negative for injury and pain, MS/Extremity: Negative for injury and deformity, Skin: Negative for injury, rash, and discoloration, Neuro: Negative for headache, weakness, numbness, tingling, and seizure, Allergy/Immunology: Negative for hives, rash, and allergies, Endocrine: Negative for neck swelling, polydipsia, polyuria, polyphagia, and marked weight changes, Hematologic/Lymphatic: Negative for swollen nodes, abnormal bleeding, and unusual bruising, 03:58 All other systems are negative, Exam: 03:59 Constitutional: This is a well developed, well nourished patient who is awake, alert, sp3 and in no acute distress. Head/Face: Normocephalic, atraumatic. Eyes: Pupils equal round and reactive to light, extra-ocular motions intact. Lids and lashes normal. Conjunctiva and sclera are non-icteric and not injected. Cornea within normal limits. Periorbital areas with no swelling, redness, or edema. Neck: Trachea midline, no thyromegaly or masses palpated, and no cervical lymphadenopathy. Supple, full range of motion without nuchal rigidity, or vertebral point tenderness. No Meningismus. Chest/axilla: Normal chest wall appearance and motion. Nontender with no deformity. No lesions are appreciated. Cardiovascular: Regular rate and rhythm with a normal S1 and S2. No gallops, murmurs, or rubs. Normal PMI, no JVD. No pulse deficits. Respiratory: Lungs have equal breath sounds bilaterally, clear to auscultation and percussion. No rales, rhonchi or wheezes noted. No increased work of breathing, no retractions or nasal flaring. Abdomen/GI: Soft, non-tender, with normal bowel sounds. No distension or tympany. No guarding or rebound. No evidence of tenderness throughout. Back: No spinal tenderness. No costovertebral tenderness. Full range of motion. Skin: Warm, dry with normal turgor. Normal color with no rashes, no lesions, and no evidence of cellulitis. MS/ Extremity: Pulses equal, no cyanosis. Neurovascular intact. Full, normal range of motion. Neuro: Awake and alert, GCS 15, oriented to person, place, time, and situation. Cranial nerves II-XII grossly intact. Motor strength 5/5 in all extremities. Sensory grossly intact. Cerebellar exam normal. Normal gait. 03:59 Psych: Exam negative for Patient anxious with heart rate currently at 96 bpm. No SI, HI, psychosis.. Vital Signs: 03:13 Weight 50.8 kg; Height 4 ft. 9 in. ; vc1 03:20 BP 114 / 78; Pulse 104; Resp 20; Temp 97.7; Pulse Ox 99% ; vc1 04:32 BP 116 / 72; Pulse 111; Resp 18; Pulse Ox 99% ; vc1 03:13 Body Mass Index 24.24 (50.80 kg, 144.78 cm) vc1 MDM: 03:16 Medical Screening Exam initiated sp3 03:59 Data reviewed: vital signs, nurses notes. ED course: 44-year-old female with clear sp3 anxiety. From a differential diagnosis standpoint, I have ruled out SI, HI, psychosis, somatic etiology, electrolyte disturbance, ACS, or any other critical pathology. Will administer oral Xanax 0.5 mg p.o. If this does not help, we will consider intramuscular Ativan. Patient already has follow-up and will be safely discharged home once her symptoms are better controlled.. Administered Medications: 03:35 Drug: ALPRAZolam PO Tablet 0.5 mg PO once Route: PO; vc1 04:32 Follow up: Response: No adverse reaction; No change in condition vc1 04:10 Drug: LORazepam IM 2 mg IM once Route: IM; Site: right ventrogluteal; vc1 04:32 Follow up: Response: No adverse reaction vc1 Disposition Summary: 10/09/24 04:03 Discharge Ordered Notes: Location: Home sp3 Condition: Stable sp3 Diagnosis - Anxiety, panic attack sp3 Followup: sp3 - With: Private Physician - When: Upon discharge from the Emergency Department - Reason: Continuance of care Discharge Instructions: - Discharge Summary Sheet sp3 - Panic Attack sp3 Forms: - Medication Reconciliation Form sp3 - Antibiotic Education sp3 - Prescription Opioid Use sp3 - Patient Portal Instructions sp3 - Leadership Thank You Letter sp3 - Work release form vc1 Signatures: Rogers Joyce MD MD sp3 Rachana Bhat RN RN vc1
[2024-10-09 15:32] VITALS: TEMP 97.7; O2SAT 99
[2024-10-09 15:34] VITALS: BP 116/72
== END 2024-10-09 04:37 | disposition home or self-care (01) ==
LOC: ER 02:55
DX: F41.0 Panic disorder [episodic paroxysmal anxiety] (principal); Z98.82 Breast implant status